=== PATIENT | female | born 1950 | race Caucasian/White ===

== ENCOUNTER 2024-02-19 12:10 | Inpatient (IN) | payer MEDICARE, SELFPAY ==
[2024-02-19] VITALS (26 sets, daily range): BP systolic 87–110; BP diastolic 52–72; PULSE 63–88; RESP 12–20; TEMP 36.2–36.8; O2SAT 97–100; BMI 20.9
--- NOTE | ~2024-02-19 | XR_ITS ---
EXAMINATION: XR abdomen/kub 1V DATE: 02/22/2024 14:58 INDICATION: Constipation. TECHNIQUE: A supine view of the abdomen on 2 radiographs was obtained. COMPARISON: CT abdomen and pelvis 02/19/2024 FINDINGS: Stool distends the rectosigmoid. The small bowel is normal in caliber. There are changes of heart valve replacements. There is a closure device at the left atrial appendage. Median sternotomy wires are noted. There are pacer wires in right atrium and right ventricle. Tubal ligation clips are noted. IMPRESSION: 1. Stool distends the rectosigmoid. Reviewed, dictated and finalized at location A. DRY BAG PUNCH OPERATOR
--- NOTE | ~2024-02-19 | CT_ITS ---
EXAMINATION: CT brain wo con DATE: 02/19/2024 16:31 INDICATION: AMS . TECHNIQUE: Computed tomography (CT) of the head was performed without intravenous contrast. The mA wa s adjusted according to patient size. Iterative reconstruction technique was employed. The dose-lengt h product was 605.33 mGy-cm. COMPARISON: None. FINDINGS: No acute intracranial hemorrhage or extra-axial fluid collection. No hydrocephalus, mass, or herniation. No acute ischemic infarct. Unremarkable dural venous sinus attenuation. No acute osseous abnormality. The aerated spaces are clear. Mild atrophy and moderate chronic white matter change. Atherosclerotic intracranial calcifications. IMPRESSION: No acute intracranial process. Reviewed, dictated and finalized at location K. LOCK SLEEVE SETTER
--- NOTE | ~2024-02-19 | US_ITS ---
EXAMINATION: US abdomen complete DATE: 02/24/2024 10:04 INDICATION: Pancytopenia. TECHNIQUE: Multiple grayscale and Doppler ultrasound images of the abdomen were obtained. COMPARISON: CT abdomen and pelvis 02/19/2024 FINDINGS: The visualized portions of the head and body of the pancreas are normal. Abdominal aorta is normal in caliber. The inferior vena cava is normal. There is a small right pleural effusion. The li abdirizak is normal without focal lesion. There is normal flow in main portal vein. The gallbladder is dist ended. Gallbladder wall thickening is noted. No visible gallstones. The common duct is normal and katharina sures 6 mm. The kidneys are normal in size. There is cortical thinning of the kidneys. The spleen is normal in size. IMPRESSION: 1. Gallbladder distention and wall thickening, which may be secondary to fasting and interstitial agustin ma. If there is clinical concern for acute cholecystitis, consider hepatobiliary scintigraphy. 2. Small right pleural effusion. Reviewed, dictated and finalized at location A. CREW MEMBER IMPRESSION: 1. Gallbladder distention and wall thickening, which may be secondary to fastin g and interstitial edema. If there is clinical concern for acute cholecystitis, consider hepatobiliary scintigraphy. 2. Small right pleural effusion.
--- NOTE | ~2024-02-19 | CT_ITS ---
EXAMINATION: CTA abdomen pelvis DATE: 02/19/2024 16:42 INDICATION: GI bleed, abd pain TECHNIQUE: Computed tomography angiography of the abdomen and pelvis was performed with 100 mL Omnipa que-350 intravenous contrast in the arterial phase. Automated exposure control and iterative reconstr uction technique were employed. The dose-length product was 439.51 mGy-cm. COMPARISON: X-ray chest, same date. FINDINGS: Lower thorax: Pacemaker leads. Cardiac valve replacements. Cardiomegaly. Liver: Normal. Biliary/Gallbladder: Gallbladder is normal. No bile duct dilation. Pancreas: No mass or duct dilation. Spleen: Normal. Adrenals:No mass. Kidneys: No suspicious mass, obstructing stone, or hydronephrosis. Bilateral renal atrophy. GI tract: The rectum is markedly dilated to 10.7 cm with surrounding wall thickening and inflammatory change. Marked soft tissue thickening of the distal rectum. Normal appendix. Diverticulosis without diverticulitis. Mesentery/Peritoneum: No ascites, mass, or free air. Retroperitoneum: No mass. Atherosclerotic abdominal aortic and/or arterial calcifications. No aneurys m or dissection. No branch vessel occlusion or severe stenosis. Left accessory renal artery. Pelvis: Normal urinary bladder. Normal uterus. Bilateral tubal ligation. Normal adnexa. Soft Tissues: Soft tissues and body wall unremarkable. Bones: No acute osseous finding. IMPRESSION: Severe fecal impaction with findings concerning for stercoral colitis. Possible rectal mass. No source for GI bleeding identified. Reviewed, dictated and finalized at location K. NT BABYSITTER
--- NOTE | ~2024-02-19 | XR_ITS ---
EXAMINATION: XR chest 1V portable Exam Date/Time: 02/19/2024 15:30 SOFTWARE TEAM LEADER HISTORY: dyspnea Comparison: None. RESULT: Lines, tubes, and devices: Left chest pacer with intact leads. Intact sternotomy wires. Atrial occlu maira device. Cardiac valve replacements. Lungs and pleura: Senescent changes, otherwise clear. Cardiomediastinal silhouette: Stable. Other: No acute osseous or upper abdominal finding. IMPRESSION: No acute cardiopulmonary process. Reviewed, dictated and finalized at location K. WARE TEAM LEADER
--- NOTE | 2024-02-19 15:12 | ECG_ITS ---
Test Date: 2024-02-19 15:48:06 Measurements Intervals [place] Rate: 78 P: 266 WA: 209 QRS: 1 QRSD: 186 T: 174 QT: 465 QTc: 531 Interpretive Statements ELECTRONIC ATRIAL PACEMAKER ELECTRONIC VENTRICULAR PACEMAKER ATYPICAL ECG Electronically Signed On 02-20-2024 08:55:26 BANK REPRESENTATIVE by Cliff Pereira M.D.
[2024-02-19] MEDS: SODIUM CHLORIDE 0.9% IV 1,000 ML 999 ML IV CONT ×2 (15:35→17:33)
--- NOTE | 2024-02-19 15:44 | ED_ITS ---
HPI - Nausea/Vomiting/Diarrhea General Chief complaint: Nausea/Vomiting/Diarrhea Stated complaint: diarrhea Time Seen by Provider: 02/19/24 14:58 History of Present Illness HPI Narrative: 73-year-old female with history of pacemaker placement, CABG, on chronic anticoagulation presents to the ED with son and [id number] at bedside for altered mental status and diarrhea for the past 5 days. Patient lives at home with son assist with history. States the patient has become increasingly more confused and has had bowel incontinence for the past few days. States she has had dark, tarry, sticky and malodorous stools which is abnormal. Last dose for Eliquis was this morning. She is also on iron supplement. She is reporting diffuse abdominal pain and generalized weakness. Family at bedside states the patient is having difficulty caring for herself due to her generalized weakness and has been lightheaded and unsteady on her feet. No falls. The patient denies headache, vision changes, focal numbness or weakness, chest pain, dysuria or hematuria. She is reporting some shortness of breath. No fevers. Last colonoscopy was in 2021 and showed diverticulosis and proctitis. Related Data Home Medications Medication Instructions Recorded Confirmed albuterol sulfate 90 mcg/actuation 1 - 2 puff inhalation Q6H PRN 02/19/24 02/19/24 aerosol inhaler sob/wheezing allopurinol 100 mg tablet 100 mg PO DAILY 02/19/24 02/19/24 apixaban 5 mg tablet (Eliquis) 5 mg PO BID 02/19/24 02/19/24 atorvastatin 20 mg tablet 20 mg PO QPM 02/19/24 02/19/24 cholecalciferol (vitamin D3) 1,250 1,250 mcg PO WEEKLY 02/19/24 02/19/24 mcg (50,000 unit) capsule ferrous sulfate 325 mg (65 mg 325 mg PO BID 02/19/24 02/19/24 iron) tablet fluticasone propionate 115 2 puff inhalation Q12H 02/19/24 02/19/24 mcg-salmeterol 21 mcg/actuation HFA inhaler metoprolol succinate 25 mg 12.5 mg PO DAILY 02/19/24 02/19/24 tablet,extended release 24 hr mirtazapine 30 mg tablet 30 mg PO QPM 02/19/24 02/19/24 omeprazole 20 mg capsule,delayed 20 mg PO DAILY 02/19/24 02/19/24 release Allergies Allergy/AdvReac Type Severity Reaction Status Date / Time No Known Allergies Allergy Verified 02/19/24 12:11 Review of Systems Review of Systems: All systems reviewed & are unremarkable except as noted in HPI and below [facility] Family History Family History (Updated 02/19/24 @ 20:43 by Aimee Dominguez RN) Other Acute myocardial infarction Social History Social History Smoking status: Former smoker Substance use type: does not use Do You Feel Safe in your Home?: Yes Lack of Transportation: No Lack of Food: Never True Current Housing: I Have Housing Concerned About Future Housing: No Difficulty Paying Gas/Electric Bills: No Difficulty Paying for Meds: No Currently Unemployed: No Education: High School Diploma/GED Difficulty w/ Childcare or Family Care: No Spiritual care concerns: No Exam Narrative: GENERAL: Ill appearing, NAD HEAD: Normocephalic, atraumatic. EYES: PERRLA and EOMI. ENT: Nares clear, no rhinorrhea or epistaxis. Mucous membranes moist. NECK: Supple. CHEST: Clear to auscultation. No respiratory distress. HEART: Regular rate and rhythm. No murmur heard. Normal peripheral pulses. ABDOMEN: normoactive bowel sounds. Diffuse abdominal tenderness with no rebound, guarding or rigidity. Rectal exam chaperoned by Roseanna Salmon: melena surrounding the rectum with external hemorrhoids. Hemoccult positive. No gross hematochezia EXTREMITIES: Normal range of motion. No edema. SKIN: Warm, dry, no rash. NEURO: No focal deficits. Alert and oriented x1. Moving all extremities sp ontaneously Course Vital Signs Vital signs: Vital Signs Temperature 97.2 F L 02/19/24 12:32 Pulse Rate 69 02/19/24 12:32 Respiratory Rate 18 02/19/24 12:32 Blood Pressure 97/55 L 02/19/24 12:32 Pulse Oximetry 100 02/19/24 12:32 Temperature 97.8 F 02/19/24 22:42 Pulse Rate 80 02/20/24 00:00 Respiratory Rate 20 02/19/24 22:42 Blood Pressure 104/54 L 02/19/24 22:42 Pulse Oximetry 99 02/19/24 22:42 Oxygen Delivery Room Air 02/19/24 22:18 MDM - Nausea/Vomiting/Diarrhea MDM Narrative Medical decision making narrative: 73-year-old female presents to the emergency department for altered mental status, generalized weakness and melena for 5 days. She is chronically anticoagulated with Eliquis. Triage vitals reveal hypotension of 97/55 which has since improved upon my evaluation. She is resting comfortably in exam bed. Exam is significant for gross melena vs dark stools from iron supplement. CBC shows no leukocytosis. Hemoglobin is 11.1, no prior for comparison. Chemistries reveal an elevated BUN of 15 creatinine 1.5. UA with trace ketones, no UTI. CK Mag are normal. Lactic normal at 1.2. TSH within normal limits. CT brain shows no acute intracranial findings. Chest x-ray shows no acute cardiopulmonary findings. EKG shows electronic atrial pacemaker and electronic ventricular pacemaker, rate of 70 ppm. Troponin is undetectable. CT abdomen pelvis shows severe fecal impaction with findings concerning for stercoral colitis and possible rectal mass. There is no source for GI bleeding identified. Patient and family at bedside updated on workup. She has received 2 L of fluids and IV Protonix. Given soft blood pressures and persistent passing of melena, she was transfused with a unit of blood. MAP remains >65. Attempted fecal disimpaction without much success. Patient was given a soapsuds enema with passage of diarrhea. I discussed the case with GI physician, Dr. Lipscomb, who advises to initiate Rocephin and Flagyl to cover for colitis, serial H&H, hold Eliquis, initiate clear liquid diet until NPO at midnight, and start a bowel regimen with MiraLax. Advises Protonix 40 mg q.12 b.i.d. intravenously. Agrees to consult on admission. Discussed with the hospitalist, Dr. Menchaca, who agrees to admission on med/tele. Lab Data 02/19/24 22:20 02/19/24 15:46 Labs: Lab Results 02/19/24 02/19/24 02/19/24 Range/Units 15:45 15:46 16:45 WBC 4.6 (4.5-10.0) K/mm3 RBC 3.46 L (4.2-5.4) M/mm3 Hgb 11.1 L (12.0-15.0) g/dL Hct 33.8 L (37.0-47.0) % MCV 97.7 (80-100) fl MCH 32.1 (26-34) pg MCHC 32.8 (32-36) g/dl RDW 17.2 H (11.5-14.5) % Plt Count 153 (150-375) k/mm3 MPV 12.2 H (7.4-10.4) fl Immature Gran % (Auto) 0.7 H (0-0.5) % Neut % (Auto) 68.9 (45.5-73.1) % Lymph % (Auto) 23.1 (18.3-44.2) % [place] % (Auto) 5.5 (2.6-8.5) % Eos % (Auto) 0.9 (0-4.4) % Baso % (Auto) 0.9 (0.2-1.2) % Lymph # (Auto) 1.05 (0.9-3.2) K/mm3 [place] # (Auto) 0.3 (0.1-0.6) K/mm3 Eos # (Auto) 0.0 (0-0.3) K/mm3 Baso # (Auto) 0.0 (0.0-0.1) K/mm3 Abs Immat Gran (auto) 0.03 (0.00-0.031) K/mm3 Absolute Neuts (auto) 3.1 (1.3-6.7) K/mm3 Absolute Nucleated RBC 0.000 (0.0-0.012) K/mm3 Nucleated RBC % 0.0 (0.0-0.2) % PT 24.2 H (11.1-14.7) Seconds INR 2.1 APTT 38.1 H (22.3-36.8) Seconds Sodium 139 (137-145) mmol/L Potassium 4.3 (3.4-5.0) mmol/L Chloride 108 H (98-107) mmol/L Carbon Dioxide 21 L (22-30) mmol/L Anion Gap 10 (4-12) mmol/L BUN 50 H (7-17) mg/dL Creatinine 1.50 H (0.7-1.0) mg/dL Estim Creat Clear Calc 26 ml/min Estimated GFR 34 L (59 - ) Glucose 84 (65-110) mg/dL Lactic Acid 1.2 (0.7-2.0) mmol/L Calcium 9.3 (8.4-10.2) mg/dL Magnesium 2.2 (1.6-2.3) mg/dL Total Bilirubin 0.9 (0.2-1.3) mg/dL AST 24 (14-36) U/L ALT 10 (6-35) U/L Alkaline Phosphatase 82 (38-126) U/L Total Creatine Kinase 104 (30-135) U/L Troponin I < 0.012 (0.000-0.034) ng/mL NT-Pro-B Natriuret Pep 1560 H (19.9-100) pg/mL Total Protein 7.0 (6.3-8.2) g/dL Albumin 4.2 (3.5-5.1) g/dL Lipase 19 L (23-300) U/L TSH 4.380 (0.465-4.680) uIU/mL Urine Color (Yellow) Urine Appearance (Clear) Urine pH (5.0-9.0) Ur Specific Jerem[place] (1.001-1.035) Urine Protein (Negative) mg/dL Urine Glucose (UA) (Negative) mg/dL Urine Ketones (Negative) mg/dL Ur Blood (Man) (Negative) Urine Nitrate (Negative) Urine Bilirubin (Negative) Urine Urobilinogen (<2.0) mg/dL Leukocyte Esterase Rfl (Negative) MAHESH/UL Blood Type O Positive Antibody Screen Negative Crossmatch See Detail 02/19/24 Range/Units 17:26 WBC (4.5-10.0) K/mm3 RBC (4.2-5.4) M/mm3 Hgb (12.0-15.0) g/dL Hct (37.0-47.0) % MCV (80-100) fl MCH (26-34) pg MCHC (32-36) g/dl RDW (11.5-14.5) % Plt Count (150-375) k/mm3 MPV (7.4-10.4) fl Immature Gran % (Auto) (0-0.5) % Neut % (Auto) (45.5-73.1) % Lymph % (Auto) (18.3-44.2) % [place] % (Auto) (2.6-8.5) % Eos % (Auto) (0-4.4) % Baso % (Auto) (0.2-1.2) % Lymph # (Auto) (0.9-3.2) K/mm3 [place] # (Auto) (0.1-0.6) K/mm3 Eos # (Auto) (0-0.3) K/mm3 Baso # (Auto) (0.0-0.1) K/mm3 Abs Immat Gran (auto) (0.00-0.031) K/mm3 Absolute Neuts (auto) (1.3-6.7) K/mm3 Absolute Nucleated RBC (0.0-0.012) K/mm3 Nucleated RBC % (0.0-0.2) % PT (11.1-14.7) Seconds INR APTT (22.3-36.8) Seconds Sodium (137-145) mmol/L Potassium (3.4-5.0) mmol/L Chloride (98-107) mmol/L Carbon Dioxide (22-30) mmol/L Anion Gap (4-12) mmol/L BUN (7-17) mg/dL Creatinine (0.7-1.0) mg/dL Estim Creat Clear Calc ml/min Estimated GFR (59 - ) Glucose (65-110) mg/dL Lactic Acid (0.7-2.0) mmol/L Calcium (8.4-10.2) mg/dL Magnesium (1.6-2.3) mg/dL Total Bilirubin (0.2-1.3) mg/dL AST (14-36) U/L ALT (6-35) U/L Alkaline Phosphatase (38-126) U/L Total Creatine Kinase (30-135) U/L Troponin I (0.000-0.034) ng/mL NT-Pro-B Natriuret Pep (19.9-100) pg/mL Total Protein (6.3-8.2) g/dL Albumin (3.5-5.1) g/dL Lipase (23-300) U/L TSH (0.465-4.680) uIU/mL Urine Color Yellow (Yellow) Urine Appearance Clear (Clear) Urine pH 5.0 (5.0-9.0) Ur Specific [place] 1.037 H (1.001-1.035) Urine Protein Negative (Negative) mg/dL Urine Glucose (UA) Negative (Negative) mg/dL Urine Ketones Trace H (Negative) mg/dL Ur Blood (Man) Negative (Negative) Urine Nitrate Negative (Negative) Urine Bilirubin Negative (Negative) Urine Urobilinogen 1.0 (<2.0) mg/dL Leukocyte Esterase Rfl Negative (Negative) MAHESH/UL Blood Type Antibody Screen Crossmatch Discharge Plan Discharge Clinical Impression: Melena, Fecal impaction, Rectal mass, Anemia, normocytic normochromic Patient Disposition: Still a Patient Condition: Stable
[2024-02-19 15:55] LABS: Basophils Percent Auto 0.9 % (0.2-1.2); Eosinophils Percent Auto 0.9 % (0-4.4); Hematocrit 33.8 % (37.0-47.0); Hemoglobin 11.1 g/dL (12.0-15.0); Immature Granulocyte Absolute 0.03 K/mm3 (0.00-0.031); Immature Granulocyte Percent A 0.7 % (0-0.5); Lymphocytes Absolute Auto 1.05 K/mm3 (0.9-3.2); Lymphocytes Percent Auto 23.1 % (18.3-44.2); Mean Corpuscular HGB Conc 32.8 g/dl (32-36); Mean Corpuscular Hemoglobin 32.1 pg (26-34); Mean Corpuscular Volume 97.7 fl (80-100); Mean Platelet Volume 12.2 fl (7.4-10.4); Monocytes Absolute Auto 0.3 K/mm3 (0.1-0.6); Monocytes Percent Auto 5.5 % (2.6-8.5); Neutrophils Absolute Auto 3.1 K/mm3 (1.3-6.7); Neutrophils Percent Auto 68.9 % (45.5-73.1); Platelet Count Result 153 k/mm3 (150-375); Red Blood Count 3.46 M/mm3 (4.2-5.4); Red Cell Distribution Width 17.2 % (11.5-14.5); White Blood Count 4.6 K/mm3 (4.5-10.0)
[2024-02-19 16:06] LABS: Alanine Aminotransferase 10 U/L (6-35); Albumin Level 4.2 g/dL (3.5-5.1); Alkaline Phosphatase 82 U/L (38-126); Anion Gap 10 mmol/L (4-12); Aspartate Amino Transferase 24 U/L (14-36); Bilirubin,Total 0.9 mg/dL (0.2-1.3); Blood Urea Nitrogen 50 mg/dL (7-17); Calcium 9.3 mg/dL (8.4-10.2); Carbon Dioxide 21 mmol/L (22-30); Chloride 108 mmol/L (98-107); Creatine Kinase 104 U/L (30-135); Estimated CRCL calculation 26 ml/min; Estimated Glomerular Filt Rate 34; Glucose 84 mg/dL (65-110); INR 2.1; Lipase 19 U/L (23-300); Magnesium 2.2 mg/dL (1.6-2.3); Potassium 4.3 mmol/L (3.4-5.0); Prothrombin Time 24.2 Seconds (11.1-14.7); Sodium 139 mmol/L (137-145)
[2024-02-19 16:07] LABS: Partial Thromboplastin Time 38.1 Seconds (22.3-36.8)
[2024-02-19 16:18] LABS: Troponin I < 0.012 ng/mL (0.000-0.034)
[2024-02-19 17:00] LABS: Lactic Acid Reflex 1.2 mmol/L (0.7-2.0)
[2024-02-19] MEDS: PANTOPRAZOLE SODIUM IV 40 MG VIAL IV PUSH ×2 (17:34→21:52)
[2024-02-19 17:47] LABS: Add Urine Microscopic? NO; Appearance Urine Clear (Clear); Bilirubin Urine Negative (Negative); Blood Urine Negative (Negative); Color Urine Yellow (Yellow); Glucose Urine UA Negative (Negative); Ketones Urine Trace mg/dL (Negative); Leukocyte Esterase Ur Negative LEU/UL (Negative); Nitrate Urine Negative (Negative); Protein Urine Negative (Negative); Specific Grav Ur 1.037 (1.001-1.035)
[2024-02-19] MEDS: TUBING, BLOOD PLUM PUMP TUBING 1 EACH XX (19:32)
[2024-02-19] MEDS: SODIUM CHLORIDE 0.9% IV 250 ML 30 ML IV CONT (19:32)
[2024-02-19 20:33] LABS: NT Pro B Type Natriuretic Pept 1560 pg/mL (19.9-100)
--- NOTE | 2024-02-19 20:59 | PC.NURSE ---
Patient denies history significant heart history as pertains to hypertension and high cholesterol; external medication list reviewed with patient and family, patient denies needing amiodarone and states I have had heart surgery, why would I need to take medicine for that ; Patient family provided a medication list via telephone and stated that they will follow up with patient's provider to confirm dosage of amiodarone and spironolactone, if needed. Admission report provided to Dr. Cevallos and FRITZ Diaz.
--- NOTE | 2024-02-19 21:15 | PM.IMHP ---
H&P: HPI History of Present Illness Date/Time: 02/19/24 21:15 Chief Complaint: 1. Melena 2. Abdominal pain 3. Weight loss Narrative: Magy Heredia is a 73F with a mHx significant for CAD s/p CABG, A-fib s/p PPM, Mitral valve repair, chronic anticoagulation, She was brought in by her daughter in-law after experiencing multiple episodes of dark loose stools; worse with meals and drinks; associated with lower abdominal pains, fatigue, anorexia, unstable gait and weight loss over prior months. She denies chest pain, fevers, rigors, dizziness or LOC. Though she smoked many years prior, she does not currently; denies alcohol or recreational/illicit drug use. Work-up findings: WBC 4.4 Hb 11 PLT 153 Na 139 K 4.3 Cl 108 HCO3 21 CTAP: Severe fecal impaction with findings concerning for stercoral colitis. Possible rectal mass. No source for GI bleeding identified. CT Head: Unremarkable CXR: Unremarkable UA: Unremarkable BNP: 1560 She will be admitted, evaluated for melena and anemia, constipation with stool impaction and a probable rectal mass Review of Systems Constitutional: Constitutional: Denies body ache(s), Denies difficulty sleeping and Reports fatigue Eyes: Eyes: Denies blurry vision ENT: Reports Normal hearing present, Denies dysphagia, Denies epistaxis, Denies nasal congestion and Denies nasal discharge Cardiovascular: Cardiovascular: Denies pedal edema, Denies lightheadedness and Denies palpitations Respiratory: Respiratory: Denies cough, Denies hemoptysis, Denies dyspnea and Denies dyspnea on exertion Gastrointestinal: Gastrointestinal: Reports abdominal pain, Reports melena, Denies hematochezia, Reports diarrhea, Denies nausea and Denies vomiting Genitourinary: Genitourinary: Denies nocturia, Denies menorrhagia, Denies dysuria, Denies urinary incontinence, Denies urinary hesitancy, Denies urinary urgency and Denies vaginal discharge Musculoskeletal: Musculoskeletal: Denies arthralgias, Denies joint swelling, Denies neck pain and Denies stiffness Integumentary/Breasts: Skin/Breast: Denies dry skin and Denies erythema Neurologic: Denies Abnormal speech present, Reports abnormal gait, Denies vertigo and Denies headache(s) Psychiatric: Psychiatric: Denies anxiety, Denies behavioral changes and Denies confusion [facility] Family History Family History (Updated 02/19/24 @ 20:43 by Aimee Dominguez RN) Other Acute myocardial infarction Social History Social History Smoking status: Former smoker Substance use type: does not use Do You Feel Safe in your Home?: Yes Lack of Transportation: No Lack of Food: Never True Current Housing: I Have Housing Concerned About Future Housing: No Difficulty Paying Gas/Electric Bills: No Difficulty Paying for Meds: No Currently Unemployed: No Education: High School Diploma/GED Difficulty w/ Childcare or Family Care: No Spiritual care concerns: No Meds Home Medications and Allergies Home Medications Medication Instructions Recorded Confirmed Type albuterol sulfate 90 mcg/actuation 1 - 2 puff inhalation Q6H PRN 02/19/24 02/19/24 History aerosol inhaler sob/wheezing allopurinol 100 mg tablet 100 mg PO DAILY 02/19/24 02/19/24 History apixaban 5 mg tablet (Eliquis) 5 mg PO BID 02/19/24 02/19/24 History atorvastatin 20 mg tablet 20 mg PO QPM 02/19/24 02/19/24 History cholecalciferol (vitamin D3) 1,250 1,250 mcg PO WEEKLY 02/19/24 02/19/24 History mcg (50,000 unit) capsule ferrous sulfate 325 mg (65 mg 325 mg PO BID 02/19/24 02/19/24 History iron) tablet fluticasone propionate 115 2 puff inhalation Q12H 02/19/24 02/19/24 History mcg-salmeterol 21 mcg/actuation HFA inhaler metoprolol succinate 25 mg 12.5 mg PO DAILY 02/19/24 02/19/24 History tablet,extended release 24 hr mirtazapine 30 mg tablet 30 mg PO QPM 02/19/24 02/19/24 History omeprazole 20 mg capsule,delayed 20 mg PO DAILY 02/19/24 02/19/24 History release Allergies Allergy/AdvReac Type Severity Reaction Status Date / Time No Known Allergies Allergy Verified 02/19/24 12:11 Vital Signs Vital Signs - 24 hr 02/19/24 12:32 02/19/24 14:53 02/19/24 16:23 Temperature 97.2 F L Pulse Rate 69 64 63 Respiratory Rate 18 18 18 Blood Pressure 97/55 L 106/72 102/65 Pulse Oximetry 100 97 97 02/19/24 16:51 02/19/24 17:01 02/19/24 17:31 Temperature Pulse Rate 79 81 80 Respiratory Rate 13 12 19 Blood Pressure 93/58 L 97/52 L 93/56 L Pulse Oximetry 100 100 100 02/19/24 18:50 02/19/24 18:55 02/19/24 18:57 Temperature 97.9 F Pulse Rate 85 78 70 Respiratory Rate 12 13 12 Blood Pressure 110/68 88/64 L 87/59 L Pulse Oximetry 100 98 99 02/19/24 19:04 02/19/24 19:10 02/19/24 19:35 Temperature 98.0 F 97.6 F Pulse Rate 78 77 81 Respiratory Rate 13 12 13 Blood Pressure 100/58 L 99/66 L 91/60 L Pulse Oximetry 100 100 100 02/19/24 19:56 02/19/24 20:10 02/19/24 20:46 Temperature 98.0 F Pulse Rate 79 85 73 Respiratory Rate 12 16 13 Blood Pressure 94/66 L 92/68 L 96/62 L Pulse Oximetry 98 100 98 02/19/24 20:01 02/19/24 20:05 02/19/24 20:11 Temperature Pulse Rate 80 87 80 Respiratory Rate 12 19 17 Blood Pressure 92/68 L 94/68 L 92/68 L Pulse Oximetry 97 98 98 02/19/24 20:16 02/19/24 20:21 02/19/24 20:26 Temperature Pulse Rate 79 86 85 Respiratory Rate 19 13 19 Blood Pressure 98/61 L 99/59 L 91/63 L Pulse Oximetry 97 98 98 02/19/24 20:31 02/19/24 20:40 02/19/24 21:06 Temperature 98.2 F Pulse Rate 86 88 81 Respiratory Rate 12 15 14 Blood Pressure 95/60 L 94/67 L 95/63 L Pulse Oximetry 100 99 98 Exam Const: General: comfortable; No no acute distress, in distress or uncomfortable HENMT: Mouth: No moist mucous membranes, Yes dry mucous membranes and No Abnormal oral and palatal mucosa present Eyes: Sclera: abnormal sclerae Pupils: Equal, round and reactive pupils present EOM: EOMs intact bilaterally Neck: Neck: supple Thyroid: thyroid normal Lymphatic: lymphadenopathy not noted Resp: Auscultation: clear to auscultation bilaterally, no crackles, no rales, no rhonchi and no wheezes Cardio: Rate: regular rate Rhythm: regular rhythm GI: Inspection: non-distended GI Palp: Yes Soft to palpation, Yes Tenderness to palpation present (GI) and Yes Guarding due to palpation present (GI) Auscultation: normal bowel sounds Skin: General skin exam: normal color Lesions: no lesions noted Rashes: no rashes noted Neuro: Motor exam (neuro): 5/5 motor strength present throughout, Normal motor muscle tone present throughout and strength normal Sensory Exam: normal sensation Psych: Mental Status: mental status grossly normal H&P: Results Labs Labs: Short CBC 02/19/24 Range/Units 15:46 WBC 4.6 (4.5-10.0) K/mm3 Hgb 11.1 L (12.0-15.0) g/dL Hct 33.8 L (37.0-47.0) % Plt Count 153 (150-375) k/mm3 BMP 02/19/24 15:46 Sodium 139 Potassium 4.3 Chloride 108 H Carbon Dioxide 21 L BUN 50 H Creatinine 1.50 H Glucose 84 Calcium 9.3 Cardiac Enzymes 02/19/24 Range/Units 15:46 Total Creatine Kinase 104 (30-135) U/L Troponin I < 0.012 (0.000-0.034) ng/mL Liver Function 02/19/24 Range/Units 15:46 Total Bilirubin 0.9 (0.2-1.3) mg/dL AST 24 (14-36) U/L ALT 10 (6-35) U/L Alkaline Phosphatase 82 (38-126) U/L Albumin 4.2 (3.5-5.1) g/dL Urine 02/19/24 Range/Units 17:26 Urine Color Yellow (Yellow) Urine Appearance Clear (Clear) Urine pH 5.0 (5.0-9.0) Ur Specific [place] 1.037 H (1.001-1.035) Urine Protein Negative (Negative) mg/dL Urine Glucose (UA) Negative (Negative) mg/dL ECG Attestation: I personally reviewed and interpreted this ECG as follows: (Atrial paced, VS rhythm; no evidence of ischemia. Rate 78; qTC 531) ECG completion date: 02/19/24 Assessment and Plan Assessment and plan (1) Melena: Code(s): K92.1 - Melena Status: Acute Assessment and Plan: Acute, Severe Dark stools maybe 2/2 iron supplements, UGIB while on Eliquis Rx: Monitor Hb with goal >7; NPO @ midnight; GI consult. will benefit from U+L endoscopies (2) Rectal mass: Code(s): K62.89 - Other specified diseases of anus and rectum Status: Acute Assessment and Plan: Acute, Moderate May be neoplastic process Rx: Colonoscopy with biopsy (3) Anemia, normocytic normochromic: Code(s): D64.9 - Anemia, unspecified Status: Acute Assessment and Plan: Acute, Moderate. Rx: Goal Hb >7; PPI; GI cnsulted Plan Acute and Principal conditions 1. Melena. Maybe 2/2 iron supplements vs UGIB 2. NAGMA. likely 2/2 diarrhea 3. Probable rectal mass. 4. Weight loss. unintentional 5. Acute renal insufficiency 6. Fecal impaction with constipated stools 7. Probable stercoral colitis. a. PPI, Hb monitoring; NPO @ midnight b. Hold AC till cleared by GI c. GI consulted; will benefit from U+L endoscopies d. Monitor renal function e. Metronidazole; Ceftriaxone Chronic and stable conditions 1. Chronic anticoagulant use 2. Hx of A-fib, s/p PPM. unsure of Amiodarone 3. Mitral valve repair, Bovine. on Eliquis 4. Insomnia 5. GERD. on PPI 6. Dyslipidemia. on Statin 7. Recurrent depression with Anxiety. 8. Hx of CVA. Miscellaneous care. 1. VTE prophylaxis. SCDs; holding pharmacologic VTE prophylaxis 2. Nutrition. NPO @ midnight 3. Code status. Full Hospitalist MIPS Advance Care Plan I have confirmed that the patient's Advanced Care Plan is present, code status is documented, or surrogate decision maker is listed in patient medical record.: Yes Medication Reconciliation I have utilized all available resources to obtain, update and review the patients current medications (includes all prescriptions, OTC, herbals, cannabis, and nutritional supplements).: Yes The patient is not eligible for med reconciliation; the patient is in a emergent medical situation where delaying treatment would jeopardize the patients health.: Yes
--- NOTE | 2024-02-19 21:23 | ADMGEN ---
This patient, Magy Heredia, was admitted to Medical Room 341-01. Patient/family oriented to hospital policies and general routines including ID bracelet, bed and alarms, visiting hours, pain management, procedures, bathroom and other care routines, personal items, smoking policy, room service/diet, and visiting hours. Information on how to activate the Rapid Response Team has been discussed. Patient/Family are encouraged to report perceived risks to care and to ask questions if they do not understand what they are told or what they should do.
[2024-02-19] MEDS: SODIUM CHLORIDE 0.9% IV 1,000 ML 100 ML IV CONT (21:53)
[2024-02-19] MEDS: metroNIDAZOLE 500 MG/ISO 100ML 500 MG/100 ML BAG 100 MG IVPB (21:53)
[2024-02-19 22:27] LABS: Hematocrit 33.8 % (37.0-47.0)
[2024-02-20] VITALS (13 sets, daily range): BP systolic 93–140; BP diastolic 53–107; PULSE 70–93; RESP 18–20; TEMP 36.2–36.8; O2SAT 94–100; BMI 20.9
[2024-02-20] MEDS: metroNIDAZOLE 500 MG/ISO 100ML 500 MG/100 ML BAG 100 MG IVPB ×3 (05:51→21:23)
[2024-02-20 06:18] LABS: Basophils Percent Auto 0.6 % (0.2-1.2); Eosinophils Absolute Auto 0.1 K/mm3 (0-0.3); Eosinophils Percent Auto 2.6 % (0-4.4); Hematocrit 32.4 % (37.0-47.0); Hemoglobin 10.2 g/dL (12.0-15.0); Immature Granulocyte Absolute 0.02 K/mm3 (0.00-0.031); Immature Granulocyte Percent A 0.6 % (0-0.5); Immature Platelet Fraction Pct 6.4 % (0.9-11.2); Lymphocytes Percent Auto 23.1 % (18.3-44.2); Mean Corpuscular HGB Conc 31.5 g/dl (32-36); Mean Corpuscular Hemoglobin 30.9 pg (26-34); Mean Corpuscular Volume 98.2 fl (80-100); Mean Platelet Volume 12.5 fl (7.4-10.4); Monocytes Absolute Auto 0.2 K/mm3 (0.1-0.6); Monocytes Percent Auto 5.8 % (2.6-8.5); Neutrophils Absolute Auto 2.3 K/mm3 (1.3-6.7); Neutrophils Percent Auto 67.3 % (45.5-73.1); Platelet Count Result 88 k/mm3 (150-375); Red Cell Distribution Width 17.3 % (11.5-14.5); White Blood Count 3.5 K/mm3 (4.5-10.0)
[2024-02-20 06:32] LABS: Alanine Aminotransferase 8 U/L (6-35); Albumin Level 2.9 g/dL (3.5-5.1); Alkaline Phosphatase 65 U/L (38-126); Anion Gap 4 mmol/L (4-12); Aspartate Amino Transferase 22 U/L (14-36); Bilirubin,Total 0.8 mg/dL (0.2-1.3); Blood Urea Nitrogen 36 mg/dL (7-17); Calcium 8.1 mg/dL (8.4-10.2); Carbon Dioxide 20 mmol/L (22-30); Chloride 113 mmol/L (98-107); Estimated CRCL calculation 36 ml/min; Estimated Glomerular Filt Rate 49; Glucose 64 mg/dL (65-110); Potassium 4.1 mmol/L (3.4-5.0); Sodium 137 mmol/L (137-145)
[2024-02-20] MEDS: DEXTROSE 50% 25 GM/50 ML SYRINGE IV PUSH (06:45)
[2024-02-20 07:06] LABS: Glucose Point of Care 123 mg/dl (65-105)
[2024-02-20] MEDS: PANTOPRAZOLE SODIUM IV 40 MG VIAL IV PUSH (09:35)
--- NOTE | 2024-02-20 10:35 | P.PNIM_ITS ---
Progress Note: A&P Assessment and Plan (1) Melena: Code(s): K92.1 - Melena Status: Acute Assessment and Plan: * Reporting dark stools on Eliquis for AFib * Hemoglobin stable * Continue to trend * GI consulted and plans for colonoscopy and EGD tomorrow * Transfuse as needed for hemoglobin less than 7.0 (2) Rectal mass: Code(s): K62.89 - Other specified diseases of anus and rectum Status: Acute Assessment and Plan: * GI consulted and following * CT of abdomen and pelvis showing severe fecal impaction with findings concerning for sterile coral colitis, possible rectal mass. * Plan for EGD/colonoscopy tomorrow (3) Anemia, normocytic normochromic: Code(s): D64.9 - Anemia, unspecified Status: Acute Assessment and Plan: * GI consulted * Hgb 10.7 * Continue to trend * Transfuse for Hgb < 7.0 (4) Hyperlipidemia: Code(s): E78.5 - Hyperlipidemia, unspecified Status: Acute Assessment and Plan: * continue Atorvastatin (5) Stercoral colitis: Code(s): K52.89 - Other specified noninfective gastroenteritis and colitis Status: Acute Assessment and Plan: * Continue bowel prep for EGD/colonoscopy in the morning (6) Pancytopenia: Code(s): D61.818 - Other pancytopenia Status: Acute Assessment and Plan: * WBC 3.5, RBC 3.30, Plt 88 * continue to trend * likely secondary to stercoral colitis, rectal mass??? Time Spent With Patient Time with patient: Greater than 35 minutes Subjective Date/time seen: 02/20/24 10:35 Interval history: Interval history: This is a 73 year old female who presented to the hospital yesterday with melena stools, abdominal pain, fatigue, and weight loss. Work up in the hospital included a chest x-ray that was negative for any acute findings. Head CT was also negative for any acute findings. Abdomen/Pelvis CTA revealed severe fecal impaction with findings concerning for stercoral colitis, possible rectal mass. the rectum was noted to be dilated to 10.7cm with surrounding wall thickening and inflammatory changes. Initial Labs shown a normal WBC of 4.6, Hgb 11.1, INR 2.1, creatinine 1.50, eGFR 34, lactic acid normal at 1.2, proBNP 1560, negative troponin, Lipase low at 19, TSH normal at 4.380. UA was obtained and shown a urine specific gravity of 1.037, trace ketones, otherwise unremarkable. EKG showing atrial paced rhythm with a rate of 78, QTc 531. Patient was given IVF, Protonix, Rocephin, Flagyl, Miralax and Dulcolax while in the ER. GI was consulted. Subjective: Patient talking in circles requesting door to be opened, heat turned up, asking about the miralax. After answering her she repeated the same requests. Patient has history of CVA in the past. Unsure if this has something to do with her rambling speech. Tried to reach out to her daughter for a better history however the phone number in the EMR is not a working number. Labs and imaging reviewed. Review of Systems Review of Systems: All systems reviewed & are unremarkable except as noted in HPI and below Constitutional: Constitutional: Reports as per HPI and Reports no additional constitutional complaints Eyes: Eyes: Reports as per HPI and Reports no additional eye complaints ENT: Reports system reviewed and no additional complaints, except as documented and Reports as per HPI Cardiovascular: Cardiovascular: Reports as per HPI and Reports no additional cardiovascular complaints Respiratory: Respiratory: Reports as per HPI and Reports no additional respiratory complaints Gastrointestinal: Gastrointestinal: Reports as per HPI and Reports no additional gastrointestinal complaints Genitourinary: Genitourinary: Reports no additional female genitourinary complaints and Reports as per HPI Musculoskeletal: Musculoskeletal: Reports no additional musculoskeletal complaints and Reports as per HPI Integumentary/Breasts: Skin/Breast: Reports system reviewed and no additional complaints, except as docu and Reports as per HPI Neurologic: Reports system reviewed and no additional complaints, except as documented and Reports as per HPI Psychiatric: Psychiatric: Reports no additional psychiatric complaints and R eports as per HPI Exam Narrative: General: In no acute distress, well nourished Head: atraumatic, no encephalopathy Eyes:PERRLA, sclera clear ENT: moist mucous membranes, nasal passages clear Neck: supple, no JVD, no adenopathy, trachea midline Cardiac: Normal S1 and S2. No murmur, gallops or friction rubs, peripheral pulses intact. Respiratory: Lungs clear to auscultation, no adventitious lung sounds, currently on room air Gastrointestinal: soft, non-distended, non-tender, normoactive bowel sounds. : voiding without difficulty. Extremities: moves all extremities well, no edema Skin: clean, dry, intact. No wounds or lesions. Neuro: Alert , cranial nerves intact, no neuro deficits. Psych: Rambling speech, anxious Objective Data Vital Signs Vital Signs: Vital Signs - 24 hr 02/19/24 12:32 02/19/24 14:53 02/19/24 16:23 Temperature 97.2 F L Pulse Rate 69 64 63 Respiratory Rate 18 18 18 Blood Pressure 97/55 L 106/72 102/65 Pulse Oximetry 100 97 97 Oxygen Delivery Fraction of Inspired Oxygen 02/19/24 16:51 02/19/24 17:01 02/19/24 17:31 Temperature Pulse Rate 79 81 80 Respiratory Rate 13 12 19 Blood Pressure 93/58 L 97/52 L 93/56 L Pulse Oximetry 100 100 100 Oxygen Delivery Fraction of Inspired Oxygen 02/19/24 18:50 02/19/24 18:55 02/19/24 18:57 Temperature 97.9 F Pulse Rate 85 78 70 Respiratory Rate 12 13 12 Blood Pressure 110/68 88/64 L 87/59 L Pulse Oximetry 100 98 99 Oxygen Delivery Fraction of Inspired Oxygen 02/19/24 19:04 02/19/24 19:10 02/19/24 19:35 Temperature 98.0 F 97.6 F Pulse Rate 78 77 81 Respiratory Rate 13 12 13 Blood Pressure 100/58 L 99/66 L 91/60 L Pulse Oximetry 100 100 100 Oxygen Delivery Fraction of Inspired Oxygen 02/19/24 19:56 02/19/24 20:10 02/19/24 20:46 Temperature 98.0 F Pulse Rate 79 85 73 Respiratory Rate 12 16 13 Blood Pressure 94/66 L 92/68 L 96/62 L Pulse Oximetry 98 100 98 Oxygen Delivery Fraction of Inspired Oxygen 02/19/24 20:01 02/19/24 20:05 02/19/24 20:11 Temperature Pulse Rate 80 87 80 Respiratory Rate 12 19 17 Blood Pressure 92/68 L 94/68 L 92/68 L Pulse Oximetry 97 98 98 Oxygen Delivery Fraction of Inspired Oxygen 02/19/24 20:16 02/19/24 20:21 02/19/24 20:26 Temperature Pulse Rate 79 86 85 Respiratory Rate 19 13 19 Blood Pressure 98/61 L 99/59 L 91/63 L Pulse Oximetry 97 98 98 Oxygen Delivery Fraction of Inspired Oxygen 02/19/24 20:31 02/19/24 20:40 02/19/24 21:06 Temperature 98.2 F Pulse Rate 86 88 81 Respiratory Rate 12 15 14 Blood Pressure 95/60 L 94/67 L 95/63 L Pulse Oximetry 100 99 98 Oxygen Delivery Fraction of Inspired Oxygen 02/19/24 22:18 02/19/24 22:27 02/19/24 22:42 Temperature 97.8 F Pulse Rate 76 74 Respiratory Rate 20 Blood Pressure 104/54 L Pulse Oximetry 99 Oxygen Delivery Room Air Fraction of Inspired Oxygen 02/20/24 00:00 02/20/24 04:00 02/20/24 05:45 Temperature Pulse Rate 80 73 82 Respiratory Rate Blood Pressure 93/61 L Pulse Oximetry Oxygen Delivery Fraction of Inspired Oxygen 02/20/24 04:00 02/20/24 05:48 02/20/24 05:50 Temperature 98.3 F Pulse Rate 93 90 93 Respiratory Rate 18 Blood Pressure 93/61 L 93/62 L 140/107 H Pulse Oximetry 96 Oxygen Delivery Fraction of Inspired Oxygen 02/20/24 09:42 Temperature Pulse Rate Respiratory Rate Blood Pressure Pulse Oximetry 96 Oxygen Delivery Room Air Fraction of Inspired Oxygen 21 Intake/Output Intake/Output: Intake & Output 02/17/24 02/18/24 02/19/24 02/20/24 23:59 23:59 23:59 23:59 Intake Total 2560 100 Output Total 150 Balance 2410 100 Meds/Results Medications: Active Medications Generic Name Dose Route Start Last Admin Trade Name Freq PRN Reason Stop Dose Admin Acetaminophen 650 mg 02/19/24 21:10 Acetaminophen 325 Mg Tablet PO Q4H PRN Mild Pain (1-3) or Fever Dextrose 12.5 gm 02/20/24 06:39 02/20/24 06:45 Dextrose 50% 25 Gm/50 Ml Syringe IV PUSH 12.5 gm PRN PRN Administration Hypoglycemia Protocol Glucagon 1 mg 02/20/24 06:39 Glucagon For Inj 1 Mg Vial IM PRN PRN Hypoglycemia Protocol Glucose 15 gm 02/20/24 06:39 Glucose Oral Gel 15 Gm Of Glucse In 37.5 Gm Tube PO PRN PRN Hypoglycemia Protocol Ceftriaxone Sodium 1 gm in 50 mls @ 100 mls/hr 02/20/24 20:00 Rocephin 1 Gm/Ns 50 Ml IVPB Q24H DAIANA Metronidazole 500 mg in 100 mls @ 100 mls/hr 02/20/24 06:00 02/20/24 06:51 Flagyl 500 Mg/Iso Soln 100 Ml IVPB Infused Q8H DAIANA Infusion Sodium Chloride 1,000 mls @ 100 mls/hr 02/19/24 21:10 02/19/24 21:53 Normal Saline Iv IV CONT 100 mls/hr .Q10H DAIANA Administration Dextrose 1,000 mls @ 100 mls/hr 02/20/24 06:39 Dextrose 5% 1,000 Ml IVPB PRN PRN Hypoglycemia Protocol Pantoprazole Sodium 40 mg 02/19/24 21:15 02/20/24 09:35 Pantoprazole Sodium Iv 40 Mg Vial IV PUSH 40 mg Q12HR DAIANA Administration Polyethylene Glycol 17 gm 02/20/24 09:00 02/20/24 08:52 Polyethylene Glycol 3350 17 Gm Powd.Pack PO Not Given QAM [facility] Radiology Results: ITS Impressions Chest X-Ray 02/19/24 15:48 IMPRESSION: No acute cardiopulmonary process. Head CT 02/19/24 16:34 IMPRESSION: No acute intracranial process. Abdomen/Pelvis CTA 02/19/24 16:49 IMPRESSION: Severe fecal impaction with findings concerning for stercoral colitis. Possible rectal mass. No source for GI bleeding identified. Labs Labs: Laboratory Results - last 24 hr 02/19/24 02/19/24 02/19/24 15:45 15:46 16:45 WBC 4.6 RBC 3.46 L Hgb 11.1 L Hct 33.8 L MCV 97.7 MCH 32.1 MCHC 32.8 RDW 17.2 H Plt Count 153 MPV 12.2 H Immature Gran % (Auto) 0.7 H Neut % (Auto) 68.9 Lymph % (Auto) 23.1 [place] % (Auto) 5.5 Eos % (Auto) 0.9 Baso % (Auto) 0.9 Lymph # (Auto) 1.05 [place] # (Auto) 0.3 Eos # (Auto) 0.0 Baso # (Auto) 0.0 Abs Immat Gran (auto) 0.03 Absolute Neuts (auto) 3.1 Absolute Nucleated RBC 0.000 Nucleated RBC % 0.0 % Immature Plt Fraction PT 24.2 H INR 2.1 APTT 38.1 H Sodium 139 Potassium 4.3 Chloride 108 H Carbon Dioxide 21 L Anion Gap 10 BUN 50 H Creatinine 1.50 H Estim Creat Clear Calc 26 Estimated GFR 34 L Glucose 84 POC Capillary Glucose Lactic Acid 1.2 Calcium 9.3 Magnesium 2.2 Total Bilirubin 0.9 AST 24 ALT 10 Alkaline Phosphatase 82 Total Creatine Kinase 104 Troponin I < 0.012 NT-Pro-B Natriuret Pep 1560 H Total Protein 7.0 Albumin 4.2 Lipase 19 L TSH 4.380 Urine Color Urine Appearance Urine pH Ur Specific [place] Urine Protein Urine Glucose (UA) Urine Ketones Ur Blood (Man) Urine Nitrate Urine Bilirubin Urine Urobilinogen Leukocyte Esterase Rfl Blood Type O Positive Antibody Screen Negative Crossmatch See Detail 02/19/24 02/19/24 02/20/24 17:26 22:20 05:27 WBC 3.5 L RBC 3.30 L Hgb 11.0 L 10.2 L Hct 33.8 L 32.4 L MCV 98.2 MCH 30.9 MCHC 31.5 L RDW 17.3 H Plt Count 88 L MPV 12.5 H Immature Gran % (Auto) 0.6 H Neut % (Auto) 67.3 Lymph % (Auto) 23.1 [place] % (Auto) 5.8 Eos % (Auto) 2.6 Baso % (Auto) 0.6 Lymph # (Auto) 0.80 L [place] # (Auto) 0.2 Eos # (Auto) 0.1 Baso # (Auto) 0.0 Abs Immat Gran (auto) 0.02 Absolute Neuts (auto) 2.3 Absolute Nucleated RBC 0.000 Nucleated RBC % 0.0 % Immature Plt Fraction 6.4 PT INR APTT Sodium 137 Potassium 4.1 Chloride 113 H Carbon Dioxide 20 L Anion Gap 4 BUN 36 H D Creatinine 1.10 H Estim Creat Clear Calc 36 Estimated GFR 49 L Glucose 64 L POC Capillary Glucose Lactic Acid Calcium 8.1 L Magnesium Total Bilirubin 0.8 AST 22 ALT 8 Alkaline Phosphatase 65 Total Creatine Kinase Troponin I NT-Pro-B Natriuret Pep Total Protein 5.0 L Albumin 2.9 L Lipase TSH Urine Color Yellow Urine Appearance Clear Urine pH 5.0 Ur Specific [place] 1.037 H Urine Protein Negative Urine Glucose (UA) Negative Urine Ketones Trace H Ur Blood (Man) Negative Urine Nitrate Negative Urine Bilirubin Negative Urine Urobilinogen 1.0 Leukocyte Esterase Rfl Negative Blood Type Antibody Screen Crossmatch 02/20/24 07:01 WBC RBC Hgb Hct MCV MCH MCHC RDW Plt Count MPV Immature Gran % (Auto) Neut % (Auto) Lymph % (Auto) [place] % (Auto) Eos % (Auto) Baso % (Auto) Lymph # (Auto) [place] # (Auto) Eos # (Auto) Baso # (Auto) Abs Immat Gran (auto) Absolute Neuts (auto) Absolute Nucleated RBC Nucleated RBC % % Immature Plt Fraction PT INR APTT Sodium Potassium Chloride Carbon Dioxide Anion Gap BUN Creatinine Estim Creat Clear Calc Estimated GFR Glucose POC Capillary Glucose 123 H Lactic Acid Calcium Magnesium Total Bilirubin AST ALT Alkaline Phosphatase Total Creatine Kinase Troponin I NT-Pro-B Natriuret Pep Total Protein Albumin Lipase TSH Urine Color Urine Appearance Urine pH Ur Specific [place] Urine Protein Urine Glucose (UA) Urine Ketones Ur Blood (Man) Urine Nitrate Urine Bilirubin Urine Urobilinogen Leukocyte Esterase Rfl Blood Type Antibody Screen Crossmatch Quality VTE Prophylaxis VTE prophylaxis: mechanical ordered
--- NOTE | 2024-02-20 10:38 | WPDGICN ---
Assessment and Plan Assessment and plan (1) Melena: Code(s): K92.1 - Melena Status: Acute (2) Fecal impaction: Code(s): K56.41 - Fecal impaction Status: Acute (3) Rectal mass: Code(s): K62.89 - Other specified diseases of anus and rectum Status: Acute (4) Stercoral colitis: Code(s): K52.89 - Other specified noninfective gastroenteritis and colitis Status: Acute (5) Abnormal digestive system diagnostic imaging: Code(s): R93.3 - Abnormal findings on diagnostic imaging of other parts of digestive tract Status: Acute (6) Pancytopenia: Code(s): D61.818 - Other pancytopenia Status: Acute Plan 1. Melena/pancytopenia: No known EGD Hx. patient with an extensive cardiac history including coronary artery disease status post CABG, bovine mitral valve replacement, AFib, and recent CVA. Patient is on long-term anticoagulation with Eliquis. Per [id number] patient had her CVA approximately 1 month ago and has been experiencing confusion since then. Patient states she has been having black stools for 2 weeks, she is on oral iron but it does not sound like she was having dark stools while on iron. she denies any NSAID or aspirin use denies any reflux or regurgitation. She does admit to Early satiety and a little weight loss but this is on measured. Appetite has been ok. H&H has remained relatively stable since admission but patient received 1 unit of PRBCs prior to admission labs showing Hgb 11-->10.2, Hct 34-->32, MCV 89, platelets 88, INR 2.1. WBC's were normal on admission and today 3.5. Continue PPI care with NSAID's aspirin and anticoags plan for EGD tomorrow primary care team to continue monitoring H/H and transfuse as needed to keep Hgb > 7 2. Abnormal imaging digestive-possible rectal mass/constipation /diarrhea/ fecal impaction / fecal incontinence: Per patient family last colonoscopy performed sometime in [place] town and colonoscopy supposedly revealed diverticulosis and proctitis. Patient denies any constipation prior to admission but CT yesterday showed severe fecal impaction with findings concerning for stercoral colitis and possible rectal mass. Patient is having black liquid stools multiple times daily now with fecal incontinence. Denies bright red blood per rectal or rectal pain. DDX: Chronic versus acute bowel inflammation versus motility disorder versus pelvic floor dysfunction versus overflow diarrhea secondary to impaction vs obstructive Patient has had multiple dark liquid stools today and episodes of fecal incontinence patient may require a oil retention enema based on response to bowel prep Clear liquid diet start bowel prep today following colonoscopy, patient will need to start a bowel regimen to address constipation Care with narcotics Thank you very much for allowing me to share in the care of this very nice patient. This report may have been done utilizing a voice recognition system. Attempts have been made to correct errors. However, there may be uncorrected grammatical, spelling, and recognition errors present. GI Consult Note Consult date/time: 02/20/24 10:38 Reason for consult: GI bleed HPI: This is a 73-year-old female with history of coronary artery disease, AFib, CABG, mitral valve repair, recent CVA and chronic anticoagulation. She presented to the emergency room yesterday accompanied by family for altered mental status and diarrhea. GI has been consulted for GI bleed. Patient was accompanied by her [id number] Keiko throughout the entire visit who also help provide subjective information. Please note that the patient is a poor historian so obtaining subjective information was somewhat difficult. Per [id number] the patient had a CVA last month and since then has been dealing with some confusion. Patient complains of Early satiety and umbilical abdominal pain that she described as a dull ache that has been occurring for a few weeks. Patient was unable to provide any additional information about this abdominal pain. She states that she thinks she may have lost weight but this is un measured. Patient believes that she has been having dark colored stools and diarrhea for approximately 2 weeks. She is on oral iron but was not having black stools prior to 2 weeks ago. She denies any nausea, vomiting, bloating, odynophagia, dysphagia, reflux, regurgitation. patient denies any bright red blood per rectum but was unable to provide any further details regarding her bowel frequency in bowel habits prior to admission. Patient is on Eliquis daily. Family history unknown. ENDOSCOPY HISTORY: EGD: No known Hx of prior EGD COLONOSCOPY: Last colonoscopy in 2021 showed diverticulosis and proctitis performed either in [place] or [facility] LABS AND STOOL STUDIES: LABS 02/20/2024 showed sodium 137, potassium 4.1, BUN 36, creatinine 1.10, GFR 89. WBC is 3.5, HGB 10, HCT 32, MCV 98, platelets 88, INR 2.1. Total bilirubin 0.8, AST 22, ALT 8, alkaline phosphatase 65, albumin 2.9, lactic acid 1.2, calcium 8.1, and lipase 19 IMAGING: CTA abd/pelvis w/contrast 02/19/2024 FINDINGS: Lower thorax: Pacemaker leads. Cardiac valve replacements. Cardiomegaly. Liver: Normal. Biliary/Gallbladder: Gallbladder is normal. No bile duct dilation. Pancreas: No mass or duct dilation. Spleen: Normal. Adrenals:No mass. Kidneys: No suspicious mass, obstructing stone, or hydronephrosis. Bilateral renal atrophy. GI tract: The rectum is markedly dilated to 10.7 cm with surrounding wall thickening and inflammatory change. Marked soft tissue thickening of the distal rectum. Normal appendix. Diverticulosis without diverticulitis. Mesentery/Peritoneum: No ascites, mass, or free air. Retroperitoneum: No mass. Atherosclerotic abdominal aortic and/or arterial calcifications. No aneurysm or dissection. No branch vessel occlusion or severe stenosis. Left accessory renal artery. Pelvis: Normal urinary bladder. Normal uterus. Bilateral tubal ligation. Normal adnexa. Soft Tissues: Soft tissues and body wall unremarkable. Bones: No acute osseous finding. IMPRESSION: Severe fecal impaction with findings concerning for stercoral colitis. Possible rectal mass. No source for GI bleeding identified. Review of Systems Review of Systems: ROS unobtainable: Yes unobtainable due to mental status ( patient provided minimal subjective information) Constitutional: Constitutional: Reports as per HPI ENT: Reports as per HPI Cardiovascular: Cardiovascular: Reports as per HPI Respiratory: Respiratory: Denies cough and Denies dyspnea Gastrointestinal: Gastrointestinal: Reports as per HPI Musculoskeletal: Musculoskeletal: Reports as per HPI Integumentary/Breasts: Skin/Breast: Reports as per HPI Psychiatric: Psychiatric: Reports as per HPI Endocrine: Endocrine: Reports no additional endocrine complaints Hematologic/Lymphatic: Hematologic/Lymphatic: Reports no additional hematologic/lymphatic complaints [facility] Family History Family History (Updated 02/19/24 @ 20:43 by Aimee Dominguez RN) Other Acute myocardial infarction Social History Social History Smoking status: Former smoker Substance use type: does not use Do You Feel Safe in your Home?: Yes Lack of Transportation: No Lack of Food: Never True Current Housing: I Have Housing Concerned About Future Housing: No Difficulty Paying Gas/Electric Bills: No Difficulty Paying for Meds: No Currently Unemployed: No Education: High School Diploma/GED Difficulty w/ Childcare or Family Care: No Spiritual care concerns: No Meds Home Medications and Allergies Home Medications Medication Instructions Recorded Confirmed Type albuterol sulfate 90 mcg/actuation 1 - 2 puff inhalation Q6H PRN 02/19/24 02/19/24 History aerosol inhaler sob/wheezing allopurinol 100 mg tablet 100 mg PO DAILY 02/19/24 02/19/24 History apixaban 5 mg tablet (Eliquis) 5 mg PO BID 02/19/24 02/19/24 History atorvastatin 20 mg tablet 20 mg PO QPM 02/19/24 02/19/24 History cholecalciferol (vitamin D3) 1,250 1,250 mcg PO WEEKLY 02/19/24 02/19/24 History mcg (50,000 unit) capsule ferrous sulfate 325 mg (65 mg 325 mg PO BID 02/19/24 02/19/24 History iron) tablet fluticasone propionate 115 2 puff inhalation Q12H 02/19/24 02/19/24 History mcg-salmeterol 21 mcg/actuation HFA inhaler metoprolol succinate 25 mg 12.5 mg PO DAILY 02/19/24 02/19/24 History tablet,extended release 24 hr mirtazapine 30 mg tablet 30 mg PO QPM 02/19/24 02/19/24 History omeprazole 20 mg capsule,delayed 20 mg PO DAILY 02/19/24 02/19/24 History release Allergies Allergy/AdvReac Type Severity Reaction Status Date / Time No Known Allergies Allergy Verified 02/19/24 12:11 Vital Signs Vital Signs - 24 hr 02/19/24 12:32 02/19/24 14:53 02/19/24 16:23 Temperature 97.2 F L Pulse Rate 69 64 63 Respiratory Rate 18 18 18 Blood Pressure 97/55 L 106/72 102/65 Pulse Oximetry 100 97 97 Oxygen Delivery Fraction of Inspired Oxygen 02/19/24 16:51 02/19/24 17:01 02/19/24 17:31 Temperature Pulse Rate 79 81 80 Respiratory Rate 13 12 19 Blood Pressure 93/58 L 97/52 L 93/56 L Pulse Oximetry 100 100 100 Oxygen Delivery Fraction of Inspired Oxygen 02/19/24 18:50 02/19/24 18:55 02/19/24 18:57 Temperature 97.9 F Pulse Rate 85 78 70 Respiratory Rate 12 13 12 Blood Pressure 110/68 88/64 L 87/59 L Pulse Oximetry 100 98 99 Oxygen Delivery Fraction of Inspired Oxygen 02/19/24 19:04 02/19/24 19:10 02/19/24 19:35 Temperature 98.0 F 97.6 F Pulse Rate 78 77 81 Respiratory Rate 13 12 13 Blood Pressure 100/58 L 99/66 L 91/60 L Pulse Oximetry 100 100 100 Oxygen Delivery Fraction of Inspired Oxygen 02/19/24 19:56 02/19/24 20:10 02/19/24 20:46 Temperature 98.0 F Pulse Rate 79 85 73 Respiratory Rate 12 16 13 Blood Pressure 94/66 L 92/68 L 96/62 L Pulse Oximetry 98 100 98 Oxygen Delivery Fraction of Inspired Oxygen 02/19/24 20:01 02/19/24 20:05 02/19/24 20:11 Temperature Pulse Rate 80 87 80 Respiratory Rate 12 19 17 Blood Pressure 92/68 L 94/68 L 92/68 L Pulse Oximetry 97 98 98 Oxygen Delivery Fraction of Inspired Oxygen 02/19/24 20:16 02/19/24 20:21 02/19/24 20:26 Temperature Pulse Rate 79 86 85 Respiratory Rate 19 13 19 Blood Pressure 98/61 L 99/59 L 91/63 L Pulse Oximetry 97 98 98 Oxygen Delivery Fraction of Inspired Oxygen 02/19/24 20:31 02/19/24 20:40 02/19/24 21:06 Temperature 98.2 F Pulse Rate 86 88 81 Respiratory Rate 12 15 14 Blood Pressure 95/60 L 94/67 L 95/63 L Pulse Oximetry 100 99 98 Oxygen Delivery Fraction of Inspired Oxygen 02/19/24 22:18 02/19/24 22:27 02/19/24 22:42 Temperature 97.8 F Pulse Rate 76 74 Respiratory Rate 20 Blood Pressure 104/54 L Pulse Oximetry 99 Oxygen Delivery Room Air Fraction of Inspired Oxygen 02/20/24 00:00 02/20/24 04:00 02/20/24 05:45 Temperature Pulse Rate 80 73 82 Respiratory Rate Blood Pressure 93/61 L Pulse Oximetry Oxygen Delivery Fraction of Inspired Oxygen 02/20/24 04:00 02/20/24 05:48 02/20/24 05:50 Temperature 98.3 F Pulse Rate 93 90 93 Respiratory Rate 18 Blood Pressure 93/61 L 93/62 L 140/107 H Pulse Oximetry 96 Oxygen Delivery Fraction of Inspired Oxygen 02/20/24 09:42 Temperature Pulse Rate Respiratory Rate Blood Pressure Pulse Oximetry 96 Oxygen Delivery Room Air Fraction of Inspired Oxygen 21 Exam Const: General: cooperative, healthy appearing, comfortable and no acute distress Orientation/consciousness: oriented to person, oriented to place and oriented to time HENMT: Head: normal to inspection Mouth: Yes Normal oral and palatal mucosa present and Yes moist mucous membranes Eyes: General: appearance normal, both eyes and all related structures Conjunctivae: conjunctivae normal Sclera: sclerae normal Pupils: Equal, round and reactive pupils present Neck: Neck: normal visual inspection Chest: Chest palpation & inspection: normal inspection of the chest Resp: Effort & Inspection: normal respiratory effort and able to speak in complete sentences Auscultation: clear to auscultation bilaterally Cardio: Jugular venous distension: no JVD Rate: regular rate Rhythm: abnormal rhythm Heart sounds: S1 normal heart sound present and S2 normal heart sound present GI: Inspection: normal to inspection GI Palp: Yes Soft to palpation, No Firmness to palpation present (GI), Yes Tenderness to palpation present (GI), No Guarding due to palpation present (GI) and Yes No hepatosplenomegaly present Auscultation: normal bowel sounds Rectal Exam: deferred Skin: General skin exam: normal color and no rashes or lesions noted Other: bruising Neuro: General: oriented to person Cranial nerves: Yes Equal, round and reactive pupils present Speech: normal speech Gait exam (Neuro): Normal gait present Extrem: General: normal to inspection and no clubbing, cyanosis or edema Psych: Appearance: grossly normal and well kempt Mental Status: mental status grossly abnormal Affect: normal affect Other: Confusion Results Labs 02/20/24 05:27 02/20/24 05:27 Labs: Short CBC 02/19/24 02/19/24 02/20/24 Range/Units 15:46 22:20 05:27 WBC 4.6 3.5 L (4.5-10.0) K/mm3 Hgb 11.1 L 11.0 L 10.2 L (12.0-15.0) g/dL Hct 33.8 L 33.8 L 32.4 L (37.0-47.0) % Plt Count 153 88 L (150-375) k/mm3 BMP 02/19/24 02/20/24 15:46 05:27 Sodium 139 137 Potassium 4.3 4.1 Chloride 108 H 113 H Carbon Dioxide 21 L 20 L BUN 50 H 36 H D Creatinine 1.50 H 1.10 H Glucose 84 64 L Calcium 9.3 8.1 L Cardiac Enzymes 02/19/24 Range/Units 15:46 Total Creatine Kinase 104 (30-135) U/L Troponin I < 0.012 (0.000-0.034) ng/mL Liver Function 02/19/24 02/20/24 Range/Units 15:46 05:27 Total Bilirubin 0.9 0.8 (0.2-1.3) mg/dL AST 24 22 (14-36) U/L ALT 10 8 (6-35) U/L Alkaline Phosphatase 82 65 (38-126) U/L Albumin 4.2 2.9 L (3.5-5.1) g/dL Urine 02/19/24 Range/Units 17:26 Urine Color Yellow (Yellow) Urine Appearance Clear (Clear) Urine pH 5.0 (5.0-9.0) Ur Specific [place] 1.037 H (1.001-1.035) Urine Protein Negative (Negative) mg/dL Urine Glucose (UA) Negative (Negative) mg/dL
[2024-02-20 10:51] LABS: Hematocrit 32.3 % (37.0-47.0); Hemoglobin 10.4 g/dL (12.0-15.0)
[2024-02-20] MEDS: SODIUM CHLORIDE 0.9% IV 1,000 ML 100 ML IV CONT (11:05)
[2024-02-20] MEDS: BISACODYL 5 MG TABLET EC 20 MG PO (11:07)
[2024-02-20] MEDS: polyethylene glycoL 3350 238 GM BOTTLE PO (12:52)
[2024-02-20] MEDS: MIRTAZAPINE 30 MG TABLET PO (17:54)
[2024-02-20] MEDS: ATORVASTATIN 20 MG TABLET PO (17:55)
[2024-02-20] MEDS: FLUTICASONE/SALMETEROL 115-21 MCG INHALER 1 PUFF 2 PUFF INHALATION (20:57)
[2024-02-21] VITALS (12 sets, daily range): BP systolic 103–129; BP diastolic 45–70; PULSE 68–85; RESP 18–20; TEMP 36.1–36.7; O2SAT 96–100
[2024-02-21] MEDS: SODIUM CHLORIDE 0.9% IV 1,000 ML 100 ML IV CONT ×2 (03:03→13:49)
[2024-02-21] MEDS: polyethylene glycoL 3350 238 GM BOTTLE 119 GM PO (03:57)
[2024-02-21] MEDS: metroNIDAZOLE 500 MG/ISO 100ML 500 MG/100 ML BAG 100 MG IVPB ×3 (05:14→21:39)
--- NOTE | 2024-02-21 05:23 | PC.NURSE ---
02/20/24 @7125 true Airam had patient on bsc during bowel prep. Patient became unresponsive and limp while on bsc. [facility] called for nursing assistance, and Rapid Response team activated.
[2024-02-21 06:24] LABS: Basophils Percent Auto 0.5 % (0.2-1.2); Eosinophils Absolute Auto 0.1 K/mm3 (0-0.3); Eosinophils Percent Auto 1.2 % (0-4.4); Hematocrit 32.3 % (37.0-47.0); Hemoglobin 10.4 g/dL (12.0-15.0); Immature Granulocyte Absolute 0.03 K/mm3 (0.00-0.031); Immature Granulocyte Percent A 0.7 % (0-0.5); Lymphocytes Absolute Auto 0.63 K/mm3 (0.9-3.2); Lymphocytes Percent Auto 15.4 % (18.3-44.2); Mean Corpuscular HGB Conc 32.2 g/dl (32-36); Mean Corpuscular Hemoglobin 31.1 pg (26-34); Mean Corpuscular Volume 96.7 fl (80-100); Mean Platelet Volume 12.8 fl (7.4-10.4); Monocytes Absolute Auto 0.2 K/mm3 (0.1-0.6); Monocytes Percent Auto 4.9 % (2.6-8.5); Neutrophils Absolute Auto 3.2 K/mm3 (1.3-6.7); Neutrophils Percent Auto 77.3 % (45.5-73.1); Platelet Count Result 104 k/mm3 (150-375); Red Blood Count 3.34 M/mm3 (4.2-5.4); Red Cell Distribution Width 18.2 % (11.5-14.5); White Blood Count 4.1 K/mm3 (4.5-10.0)
[2024-02-21 06:32] LABS: Alanine Aminotransferase 10 U/L (6-35); Albumin Level 2.9 g/dL (3.5-5.1); Alkaline Phosphatase 61 U/L (38-126); Anion Gap 9 mmol/L (4-12); Aspartate Amino Transferase 20 U/L (14-36); Bilirubin,Total 0.6 mg/dL (0.2-1.3); Blood Urea Nitrogen 22 mg/dL (7-17); Calcium 8.1 mg/dL (8.4-10.2); Carbon Dioxide 20 mmol/L (22-30); Chloride 112 mmol/L (98-107); Estimated CRCL calculation 49 ml/min; Estimated Glomerular Filt Rate > 60; Glucose 115 mg/dL (65-110); Potassium 3.4 mmol/L (3.4-5.0); Sodium 141 mmol/L (137-145)
[2024-02-21] MEDS: FLUTICASONE/SALMETEROL 115-21 MCG INHALER 1 PUFF 2 PUFF INHALATION (08:25)
[2024-02-21] MEDS: METOPROLOL SUCCINATE EXT REL 12.5 MG TABCR PO (10:30)
[2024-02-21] MEDS: allopurinoL 100 MG TABLET PO (10:30)
[2024-02-21] MEDS: POTASSIUM CHLORIDE 20 MEQ ER TABLET 40 MEQ PO (10:30)
[2024-02-21] MEDS: PANTOPRAZOLE 40 MG TABLET PO (10:31)
--- NOTE | 2024-02-21 15:42 | P.PNIM_ITS ---
Progress Note: A&P Assessment and Plan (1) Melena: Code(s): K92.1 - Melena Status: Acute Assessment and Plan: * Reporting dark stools on Eliquis for AFib * Hemoglobin stable * Continue to trend * Transfuse as needed for hemoglobin less than 7.0 * Hemoglobin stable at 10.4 * Patient was unable to get colonoscopy and EGD done today as she had not finished her bowel prep. Plan for EGD tomorrow. (2) Rectal mass: Code(s): K62.89 - Other specified diseases of anus and rectum Status: Acute Assessment and Plan: * GI consulted and following * CT of abdomen and pelvis showing severe fecal impaction with findings concerning for sterile coral colitis, possible rectal mass. * Plan for EGD/colonoscopy tomorrow (3) Anemia, normocytic normochromic: Code(s): D64.9 - Anemia, unspecified Status: Acute Assessment and Plan: * GI consulted * Hgb 10.4 today * Continue to trend * Transfuse for Hgb < 7.0 (4) Hyperlipidemia: Code(s): E78.5 - Hyperlipidemia, unspecified Status: Acute Assessment and Plan: * continue Atorvastatin (5) Stercoral colitis: Code(s): K52.89 - Other specified noninfective gastroenteritis and colitis Status: Acute Assessment and Plan: * Continue bowel prep for EGD/colonoscopy in the morning (6) Pancytopenia: Code(s): D61.818 - Other pancytopenia Status: Acute Assessment and Plan: * White blood cell count 4.1, RBC 3.34, platelet count 104 * continue to trend * likely secondary to stercoral colitis, rectal mass??? Time Spent With Patient Time with patient: 25 - 35 minutes Subjective Date/time seen: 02/21/24 15:42 Interval history: Interval history: This is a 73 year old female who presented to the hospital yesterday with melena stools, abdominal pain, fatigue, and weight loss. Work up in the hospital included a chest x-ray that was negative for any acute findings. Head CT was also negative for any acute findings. Abdomen/Pelvis CTA revealed severe fecal impaction with findings concerning for stercoral colitis, possible rectal mass. the rectum was noted to be dilated to 10.7cm with surrounding wall thickening and inflammatory changes. Initial Labs shown a normal WBC of 4.6, Hgb 11.1, INR 2.1, creatinine 1.50, eGFR 34, lactic acid normal at 1.2, proBNP 1560, negative troponin, Lipase low at 19, TSH normal at 4.380. UA was obtained and shown a u rine specific gravity of 1.037, trace ketones, otherwise unremarkable. EKG showing atrial paced rhythm with a rate of 78, QTc 531. Patient was given IVF, Protonix, Rocephin, Flagyl, Miralax and Dulcolax while in the ER. GI was consulted. Subjective: No new complaints today. Labs reviewed. Review of Systems Review of Systems: All systems reviewed & are unremarkable except as noted in HPI and below Constitutional: Constitutional: Reports as per HPI and Reports no additional constitutional complaints Eyes: Eyes: Reports as per HPI and Reports no additional eye complaints ENT: Reports system reviewed and no additional complaints, except as documented and Reports as per HPI Cardiovascular: Cardiovascular: Reports as per HPI and Reports no additional cardiovascular complaints Respiratory: Respiratory: Reports as per HPI and Reports no additional respiratory complaints Gastrointestinal: Gastrointestinal: Reports as per HPI and Reports no additional gastrointestinal complaints Genitourinary: Genitourinary: Reports no additional female genitourinary complaints and Reports as per HPI Musculoskeletal: Musculoskeletal: Reports no additional musculoskeletal complaints and Reports as per HPI Integumentary/Breasts: Skin/Breast: Reports system reviewed and no additional complaints, except as docu and Reports as per HPI Neurologic: Reports system reviewed and no additional complaints, except as documented and Reports as per HPI Psychiatric: Psychiatric: Reports no additional psychiatric complaints and Reports as per HPI Exam Narrative: General: In no acute distress, well nourished Cardiac: Normal S1 and S2. No murmur, gallops or friction rubs, peripheral pulses intact. Respiratory: Lungs clear to auscultation, no adventitious lung sounds, currently on room air Gastrointestinal: soft, non-distended, non-tender, normoactive bowel sounds. : voiding without difficulty. Neuro: Alert and oriented x3 Psych: Rambling speech, anxious,suspicious demeanor Objective Data Vital Signs Vital Signs: Vital Signs - 24 hr 02/20/24 16:00 02/20/24 20:00 02/20/24 20:00 Temperature Pulse Rate 74 85 Respiratory Rate Blood Pressure Pulse Oximetry 94 Oxygen Delivery Nasal Cannula Oxygen Flow Rate 3 Fraction of Inspired Oxygen 02/20/24 21:29 02/20/24 22:20 02/21/24 00:00 Temperature 97.2 F L 97.3 F L Pulse Rate 77 85 Respiratory Rate 20 20 Blood Pressure 99/53 L 129/70 Pulse Oximetry 95 100 96 Oxygen Delivery Nasal Cannula Oxygen Flow Rate 3 Fraction of Inspired Oxygen 02/21/24 00:00 02/20/24 23:47 02/21/24 04:00 Temperature Pulse Rate 75 83 79 Respiratory Rate 20 Blood Pressure 129/70 Pulse Oximetry 96 Oxygen Delivery Room Air Oxygen Flow Rate Fraction of Inspired Oxygen 02/21/24 05:00 02/21/24 09:04 02/21/24 10:30 Temperature 97.0 F L 97.2 F L Pulse Rate 69 74 68 Respiratory Rate 20 18 Blood Pressure 110/63 105/60 Pulse Oximetry 100 98 Oxygen Delivery Oxygen Flow Rate Fraction of Inspired Oxygen 02/21/24 13:30 02/21/24 08:00 02/21/24 08:00 Temperature 98.0 F Pulse Rate 77 77 Respiratory Rate 18 Blood Pressure 103/67 Pulse Oximetry 96 96 Oxygen Delivery Room Air Oxygen Flow Rate Fraction of Inspired Oxygen 21 Intake/Output Intake/Output: Intake & Output 02/18/24 02/19/24 02/20/24 02/21/24 23:59 23:59 23:59 23:59 Intake Total 2560 2710 1100 Output Total 150 6 Balance 2410 2710 1094 Meds/Results Medications: Active Medications Generic Name Dose Route Start Last Admin Trade Name Freq PRN Reason Stop Dose Admin Acetaminophen 650 mg 02/19/24 21:10 Acetaminophen 325 Mg Tablet PO Q4H PRN Mild Pain (1-3) or Fever Allopurinol 100 mg 02/21/24 09:00 02/21/24 10:30 Allopurinol 100 Mg Tablet PO 100 mg DAILY DAIANA Administration Atorvastatin Calcium 20 mg 02/20/24 18:00 02/20/24 17:55 Atorvastatin 20 Mg Tablet PO 20 mg QPM DAIANA Administration Dextrose 12.5 gm 02/20/24 06:39 02/20/24 06:45 Dextrose 50% 25 Gm/50 Ml Syringe IV PUSH 12.5 gm PRN PRN Administration Hypoglycemia Protocol Glucagon 1 mg 02/20/24 06:39 Glucagon For Inj 1 Mg Vial IM PRN PRN Hypoglycemia Protocol Glucose 15 gm 02/20/24 06:39 Glucose Oral Gel 15 Gm Of Glucse In 37.5 Gm Tube PO PRN PRN Hypoglycemia Protocol Ceftriaxone Sodium 1 gm in 50 mls @ 100 mls/hr 02/20/24 20:00 02/20/24 20:47 Rocephin 1 Gm/Ns 50 Ml IVPB Infused Q24H DAIANA Infusion Metronidazole 500 mg in 100 mls @ 100 mls/hr 02/20/24 06:00 02/21/24 13:48 Flagyl 500 Mg/Iso Soln 100 Ml IVPB 100 mls/hr Q8H DAIANA Administration Sodium Chloride 1,000 mls @ 100 mls/hr 02/19/24 21:10 02/21/24 13:49 Normal Saline Iv IV CONT 100 mls/hr .Q10H DAIANA Administration Dextrose 1,000 mls @ 100 mls/hr 02/20/24 06:39 Dextrose 5% 1,000 Ml IVPB PRN PRN Hypoglycemia Protocol Metoprolol Succinate 12.5 mg 02/21/24 09:00 02/21/24 10:30 Metoprolol Succinate Ext Rel 12.5 Mg Tabcr PO 12.5 mg DAILY DAIANA Administration Mirtazapine 30 mg 02/20/24 18:00 02/20/24 17:54 Mirtazapine 30 Mg Tablet PO 30 mg QPM DAIANA Administration Pantoprazole Sodium 40 mg 02/21/24 09:00 02/21/24 10:31 Pantoprazole 40 Mg Tablet PO 40 mg QAM DAIANA Administration Fluticasone/Salmeterol 2 puff 02/20/24 10:45 02/21/24 08:25 Fluticasone/Salmeterol 115-21 Mcg Inhaler 1 Puff INHALATION 2 puff Q12HRT DAIANA Administration Radiology Results: ITS Impressions Chest X-Ray 02/19/24 15:48 IMPRESSION: No acute cardiopulmonary process. Head CT 02/19/24 16:34 IMPRESSION: No acute intracranial process. Abdomen/Pelvis CTA 02/19/24 16:49 IMPRESSION: Severe fecal impaction with findings concerning for stercoral colitis. Possible rectal mass. No source for GI bleeding identified. Labs Labs: Laboratory Results - last 24 hr 02/21/24 05:43 WBC 4.1 L RBC 3.34 L Hgb 10.4 L Hct 32.3 L MCV 96.7 MCH 31.1 MCHC 32.2 RDW 18.2 H Plt Count 104 L MPV 12.8 H Immature Gran % (Auto) 0.7 H Neut % (Auto) 77.3 H Lymph % (Auto) 15.4 L [place] % (Auto) 4.9 Eos % (Auto) 1.2 Baso % (Auto) 0.5 Lymph # (Auto) 0.63 L [place] # (Auto) 0.2 Eos # (Auto) 0.1 Baso # (Auto) 0.0 Abs Immat Gran (auto) 0.03 Absolute Neuts (auto) 3.2 Absolute Nucleated RBC 0.000 Nucleated RBC % 0.0 Sodium 141 Potassium 3.4 Chloride 112 H Carbon Dioxide 20 L Anion Gap 9 BUN 22 H D Creatinine 0.80 Estim Creat Clear Calc 49 Estimated GFR > 60 Glucose 115 H Calcium 8.1 L Total Bilirubin 0.6 AST 20 ALT 10 Alkaline Phosphatase 61 Total Protein 5.0 L Albumin 2.9 L Quality VTE Prophylaxis VTE prophylaxis: mechanical ordered
--- NOTE | 2024-02-21 17:54 | WPDGIPROGNO ---
Progress Note: A&P Assessment and Plan (1) Melena: Code(s): K92.1 - Melena Status: Acute Assessment and Plan: Even though the patient hemoglobin and hemodynamic status have been stable, there is a history of melena and a recent drop in hematocrit. The patient agrees to have an EGD tomorrow afternoon, for which she will be kept NPO after midnight. She even agrees to have an attempted colonoscopy at some other date. Time Spent With Patient Time with patient: less than 15 minutes Subjective Date/time seen: 02/21/24 17:54 Interval history: The patient did not complete colonoscopy prep this morning. She was not cooperative. Objective Data Vital Signs Vital Signs: Vital Signs - 24 hr 02/20/24 20:00 02/20/24 20:00 02/20/24 21:29 Temperature Pulse Rate 85 Respiratory Rate Blood Pressure Pulse Oximetry 94 95 Oxygen Delivery Nasal Cannula Nasal Cannula Oxygen Flow Rate 3 3 Fraction of Inspired Oxygen 02/20/24 22:20 02/21/24 00:00 02/21/24 00:00 Temperature 97.2 F L 97.3 F L Pulse Rate 77 85 75 Respiratory Rate 20 20 Blood Pressure 99/53 L 129/70 Pulse Oximetry 100 96 Oxygen Delivery Oxygen Flow Rate Fraction of Inspired Oxygen 02/20/24 23:47 02/21/24 04:00 02/21/24 05:00 Temperature 97.0 F L Pulse Rate 83 79 69 Respiratory Rate 20 20 Blood Pressure 129/70 110/63 Pulse Oximetry 96 100 Oxygen Delivery Room Air Oxygen Flow Rate Fraction of Inspired Oxygen 02/21/24 09:04 02/21/24 10:30 02/21/24 13:30 Temperature 97.2 F L 98.0 F Pulse Rate 74 68 77 Respiratory Rate 18 18 Blood Pressure 105/60 103/67 Pulse Oximetry 98 96 Oxygen Delivery Oxygen Flow Rate Fraction of Inspired Oxygen 02/21/24 08:00 02/21/24 08:00 Temperature Pulse Rate 77 Respiratory Rate Blood Pressure Pulse Oximetry 96 Oxygen Delivery Room Air Oxygen Flow Rate Fraction of Inspired Oxygen 21 Intake/Output Intake/Output: Intake & Output 02/18/24 02/19/24 02/20/24 02/21/24 23:59 23:59 23:59 23:59 Intake Total 2560 2710 1340 Output Total 150 6 Balance 2410 2710 1334 Meds/Results Medications: Active Medications Generic Name Dose Route Start Last Admin Trade Name Freq PRN Reason Stop Dose Admin Acetaminophen 650 mg 02/19/24 21:10 Acetaminophen 325 Mg Tablet PO Q4H PRN Mild Pain (1-3) or Fever Allopurinol 100 mg 02/21/24 09:00 02/21/24 10:30 Allopurinol 100 Mg Tablet PO 100 mg DAILY DAIANA Administration Atorvastatin Calcium 20 mg 02/20/24 18:00 02/20/24 17:55 Atorvastatin 20 Mg Tablet PO 20 mg QPM DAIANA Administration Dextrose 12.5 gm 02/20/24 06:39 02/20/24 06:45 Dextrose 50% 25 Gm/50 Ml Syringe IV PUSH 12.5 gm PRN PRN Administration Hypoglycemia Protocol Glucagon 1 mg 02/20/24 06:39 Glucagon For Inj 1 Mg Vial IM PRN PRN Hypoglycemia Protocol Glucose 15 gm 02/20/24 06:39 Glucose Oral Gel 15 Gm Of Glucse In 37.5 Gm Tube PO PRN PRN Hypoglycemia Protocol Ceftriaxone Sodium 1 gm in 50 mls @ 100 mls/hr 02/20/24 20:00 02/20/24 20:47 Rocephin 1 Gm/Ns 50 Ml IVPB Infused Q24H DAIANA Infusion Metronidazole 500 mg in 100 mls @ 100 mls/hr 02/20/24 06:00 02/21/24 13:48 Flagyl 500 Mg/Iso Soln 100 Ml IVPB 100 mls/hr Q8H DAIANA Administration Sodium Chloride 1,000 mls @ 100 mls/hr 02/19/24 21:10 02/21/24 13:49 Normal Saline Iv IV CONT 100 mls/hr .Q10H DAIANA Administration Dextrose 1,000 mls @ 100 mls/hr 02/20/24 06:39 Dextrose 5% 1,000 Ml IVPB PRN PRN Hypoglycemia Protocol Metoprolol Succinate 12.5 mg 02/21/24 09:00 02/21/24 10:30 Metoprolol Succinate Ext Rel 12.5 Mg Tabcr PO 12.5 mg DAILY DAIANA Administration Mirtazapine 30 mg 02/20/24 18:00 02/20/24 17:54 Mirtazapine 30 Mg Tablet PO 30 mg QPM DAIANA Administration Pantoprazole Sodium 40 mg 02/21/24 09:00 02/21/24 10:31 Pantoprazole 40 Mg Tablet PO 40 mg QAM DAIANA Administration Fluticasone/Salmeterol 2 puff 02/20/24 10:45 02/21/24 08:25 Fluticasone/Salmeterol 115-21 Mcg Inhaler 1 Puff INHALATION 2 puff Q12HRT DAIANA Administration Radiology Results: ITS Impressions Chest X-Ray 02/19/24 15:48 IMPRESSION: No acute cardiopulmonary process. Head CT 02/19/24 16:34 IMPRESSION: No acute intracranial process. Abdomen/Pelvis CTA 02/19/24 16:49 IMPRESSION: Severe fecal impaction with findings concerning for stercoral colitis. Possible rectal mass. No source for GI bleeding identified. Labs Labs: Laboratory Results - last 24 hr 02/21/24 05:43 WBC 4.1 L RBC 3.34 L Hgb 10.4 L Hct 32.3 L MCV 96.7 MCH 31.1 MCHC 32.2 RDW 18.2 H Plt Count 104 L MPV 12.8 H Immature Gran % (Auto) 0.7 H Neut % (Auto) 77.3 H Lymph % (Auto) 15.4 L [place] % (Auto) 4.9 Eos % (Auto) 1.2 Baso % (Auto) 0.5 Lymph # (Auto) 0.63 L [place] # (Auto) 0.2 Eos # (Auto) 0.1 Baso # (Auto) 0.0 Abs Immat Gran (auto) 0.03 Absolute Neuts (auto) 3.2 Absolute Nucleated RBC 0.000 Nucleated RBC % 0.0 Sodium 141 Potassium 3.4 Chloride 112 H Carbon Dioxide 20 L Anion Gap 9 BUN 22 H D Creatinine 0.80 Estim Creat Clear Calc 49 Estimated GFR > 60 Glucose 115 H Calcium 8.1 L Total Bilirubin 0.6 AST 20 ALT 10 Alkaline Phosphatase 61 Total Protein 5.0 L Albumin 2.9 L
[2024-02-22] VITALS (14 sets, daily range): BP systolic 99–142; BP diastolic 56–88; PULSE 70–89; RESP 14–21; TEMP 36.1–36.5; O2SAT 10–100
[2024-02-22] MEDS: SODIUM CHLORIDE 0.9% IV 1,000 ML 100 ML IV CONT ×2 (01:00→13:52)
[2024-02-22] MEDS: metroNIDAZOLE 500 MG/ISO 100ML 500 MG/100 ML BAG 100 MG IVPB ×2 (05:35→13:45)
[2024-02-22 05:49] LABS: Basophils Percent Auto 0.5 % (0.2-1.2); Eosinophils Absolute Auto 0.1 K/mm3 (0-0.3); Eosinophils Percent Auto 1.8 % (0-4.4); Hematocrit 30.5 % (37.0-47.0); Hemoglobin 9.8 g/dL (12.0-15.0); Immature Granulocyte Absolute 0.03 K/mm3 (0.00-0.031); Immature Granulocyte Percent A 0.8 % (0-0.5); Lymphocytes Absolute Auto 0.58 K/mm3 (0.9-3.2); Lymphocytes Percent Auto 14.8 % (18.3-44.2); Mean Corpuscular HGB Conc 32.1 g/dl (32-36); Mean Corpuscular Hemoglobin 31.3 pg (26-34); Mean Corpuscular Volume 97.4 fl (80-100); Mean Platelet Volume 12.7 fl (7.4-10.4); Monocytes Absolute Auto 0.2 K/mm3 (0.1-0.6); Monocytes Percent Auto 5.1 % (2.6-8.5); Platelet Count Result 89 k/mm3 (150-375); Red Blood Count 3.13 M/mm3 (4.2-5.4); White Blood Count 3.9 K/mm3 (4.5-10.0)
[2024-02-22 06:05] LABS: Alanine Aminotransferase 7 U/L (6-35); Albumin Level 2.3 g/dL (3.5-5.1); Alkaline Phosphatase 58 U/L (38-126); Anion Gap 4 mmol/L (4-12); Aspartate Amino Transferase 18 U/L (14-36); Bilirubin,Total 0.6 mg/dL (0.2-1.3); Blood Urea Nitrogen 15 mg/dL (7-17); Carbon Dioxide 18 mmol/L (22-30); Chloride 116 mmol/L (98-107); Estimated CRCL calculation 49 ml/min; Estimated Glomerular Filt Rate > 60; Glucose 70 mg/dL (65-110); Potassium 3.3 mmol/L (3.4-5.0); Sodium 138 mmol/L (137-145)
--- NOTE | 2024-02-22 10:59 | P.PNAN_ITS ---
Anes - Initial Pre Proc Eval Procedure: Operation Date: 02/22/24 14:30 Proposed Procedures p Esophagogastroduodenoscopy - Bin Mosher MD Date/Time: 02/22/24 10:59 Surgeon: Lesvia Donohue APRN Pre Op Diagnosis: Melena Patient Data Age: 73 Gender: F Height: 1.65 m Weight: 57.1 kg Last Vital Signs Temp 36.2 C L 02/22/24 08:00 Pulse 76 02/22/24 09:23 Resp 16 02/22/24 08:00 BP 110/60 02/22/24 08:00 Pulse Ox 99 02/22/24 08:00 O2 Del Method Room Air 02/22/24 08:00 O2 Flow Rate 3 02/22/24 07:15 FiO2 21 02/21/24 08:00 Allergies Allergy/AdvReac Type Severity Reaction Status Date / Time No Known Allergies Allergy Verified 02/19/24 12:11 Home Medications Medication Instructions Recorded Confirmed Type albuterol sulfate 90 mcg/actuation 1 - 2 puff inhalation Q6H PRN 02/19/24 02/19/24 History aerosol inhaler sob/wheezing allopurinol 100 mg tablet 100 mg PO DAILY 02/19/24 02/19/24 History apixaban 5 mg tablet (Eliquis) 5 mg PO BID 02/19/24 02/19/24 History atorvastatin 20 mg tablet 20 mg PO QPM 02/19/24 02/19/24 History cholecalciferol (vitamin D3) 1,250 1,250 mcg PO WEEKLY 02/19/24 02/19/24 History mcg (50,000 unit) capsule ferrous sulfate 325 mg (65 mg 325 mg PO BID 02/19/24 02/19/24 History iron) tablet fluticasone propionate 115 2 puff inhalation Q12H 02/19/24 02/19/24 History mcg-salmeterol 21 mcg/actuation HFA inhaler metoprolol succinate 25 mg 12.5 mg PO DAILY 02/19/24 02/19/24 History tablet,extended release 24 hr mirtazapine 30 mg tablet 30 mg PO QPM 02/19/24 02/19/24 History omeprazole 20 mg capsule,delayed 20 mg PO DAILY 02/19/24 02/19/24 History release Laboratory Tests 02/22/24 05:20 WBC 3.9 L K/mm3 (4.5-10.0) RBC 3.13 L M/mm3 (4.2-5.4) Hgb 9.8 L g/dL (12.0-15.0) Hct 30.5 L % (37.0-47.0) MCV 97.4 fl (80-100) MCH 31.3 pg (26-34) MCHC 32.1 g/dl (32-36) RDW 18.0 H % (11.5-14.5) Plt Count 89 L k/mm3 (150-375) MPV 12.7 H fl (7.4-10.4) Immature Gran % (Auto) 0.8 H % (0-0.5) Neut % (Auto) 77.0 H % (45.5-73.1) Lymph % (Auto) 14.8 L % (18.3-44.2) [place] % (Auto) 5.1 % (2.6-8.5) Eos % (Auto) 1.8 % (0-4.4) Baso % (Auto) 0.5 % (0.2-1.2) Lymph # (Auto) 0.58 L K/mm3 (0.9-3.2) [place] # (Auto) 0.2 K/mm3 (0.1-0.6) Eos # (Auto) 0.1 K/mm3 (0-0.3) Baso # (Auto) 0.0 K/mm3 (0.0-0.1) Abs Immat Gran (auto) 0.03 K/mm3 (0.00-0.031) Absolute Neuts (auto) 3.0 K/mm3 (1.3-6.7) Absolute Nucleated RBC 0.000 K/mm3 (0.0-0.012) Nucleated RBC % 0.0 % (0.0-0.2) Sodium 138 mmol/L (137-145) Potassium 3.3 L mmol/L (3.4-5.0) Chloride 116 H mmol/L (98-107) Carbon Dioxide 18 L mmol/L (22-30) Anion Gap 4 mmol/L (4-12) BUN 15 D mg/dL (7-17) Creatinine 0.80 mg/dL (0.7-1.0) Estim Creat Clear Calc 49 ml/min Estimated GFR > 60 (59 - ) Glucose 70 mg/dL (65-110) Calcium 8.0 L mg/dL (8.4-10.2) Total Bilirubin 0.6 mg/dL (0.2-1.3) AST 18 U/L (14-36) ALT 7 U/L (6-35) Alkaline Phosphatase 58 U/L (38-126) Total Protein 4.0 L g/dL (6.3-8.2) Albumin 2.3 L g/dL (3.5-5.1) Patient hx anesthesia problems: none Family hx anesthesia problems: none Results Review: All pre-operative results and documents have been reviewed as part of the pre- operative evaluation. [facility] Past Medical History Medical History Atrial fibrillation Coronary artery disease CVA (cerebral vascular accident) Hyperlipidemia Pacemaker Surgical History Surgical History H/O mitral valve replacement Bovine Hx of CABG Family History Family History Other Acute myocardial infarction Social History Social History Smoking status: Former smoker Substance use type: does not use Do You Feel Safe in your Home?: Yes Lack of Transportation: No Lack of Food: Never True Current Housing: I Have Housing Concerned About Future Housing: No Difficulty Paying Gas/Electric Bills: No Difficulty Paying for Meds: No Currently Unemployed: No Education: High School Diploma/GED Difficulty w/ Childcare or Family Care: No Spiritual care concerns: No Anes - Eval Final PreProcedure Day of Procedure 02/22/24 10:59 Patient weight: normal Heart: irregular rhythm Lungs: decreased breath sounds Airway: Mallampati scale class II Neurological: other (alert) Last oral intake: >/= 8 hours ASA classification: IV Emergent: no Anesthetic plan: proceed Anesthesia type and monitoring: general GIVS and standard monitoring Results Review: All pre-operative results and documents have been reviewed as part of the pre- operative evaluation. Informed Consent: The patient's anesthetic plan and its attendant risks and benefits were discussed with the patient/family/POA. Questions were solicited and answers provided to the satisfaction of the patient/family/POA.
[2024-02-22] MEDS: LACTATED RINGERS 1,000 ML 150 ML IV CONT (11:04)
--- NOTE | 2024-02-22 11:32 | WPDGIPROGNO ---
Progress Note: A&P Assessment and Plan (1) Melena: Code(s): K92.1 - Melena Status: Acute Assessment and Plan: The patient is here for EGD for the evaluation of melena episode she had days ago. She is currently not bleeding actively. Recommendations to follow after EGD. Subjective Date/time seen: 02/22/24 11:32 Objective Data Vital Signs Vital Signs: Vital Signs - 24 hr 02/21/24 13:30 02/21/24 12:00 02/21/24 16:00 Temperature 98.0 F Pulse Rate 77 84 75 Respiratory Rate 18 Blood Pressure 103/67 Pulse Oximetry 96 Oxygen Delivery Oxygen Flow Rate 02/21/24 19:46 02/21/24 20:00 02/21/24 22:20 Temperature 97.0 F L Pulse Rate 75 69 Respiratory Rate 20 Blood Pressure 107/45 L Pulse Oximetry 96 100 Oxygen Delivery Nasal Cannula Oxygen Flow Rate 3 02/22/24 00:00 02/22/24 01:33 02/22/24 04:00 Temperature 97.0 F L Pulse Rate 75 70 89 Respiratory Rate 20 Blood Pressure 118/61 Pulse Oximetry 99 Oxygen Delivery Oxygen Flow Rate 02/22/24 05:59 02/22/24 07:15 02/22/24 09:23 Temperature 97.1 F L Pulse Rate 79 76 Respiratory Rate 20 Blood Pressure 100/56 L Pulse Oximetry 100 99 Oxygen Delivery Nasal Cannula Oxygen Flow Rate 3 02/22/24 08:00 02/22/24 08:00 02/22/24 10:59 Temperature 97.1 F L 97 F L Pulse Rate 72 70 Respiratory Rate 16 14 Blood Pressure 110/60 101/66 Pulse Oximetry 99 97 Oxygen Delivery Room Air Room Air Oxygen Flow Rate 02/22/24 08:00 Temperature Pulse Rate 75 Respiratory Rate Blood Pressure Pulse Oximetry Oxygen Delivery Oxygen Flow Rate Intake/Output Intake/Output: Intake & Output 02/19/24 02/20/24 02/21/24 02/22/24 23:59 23:59 23:59 23:59 Intake Total 2560 2710 2590 Output Total 150 6 Balance 2410 2710 2584 Meds/Results Medications: Active Medications Generic Name Dose Route Start Last Admin Trade Name Freq PRN Reason Stop Dose Admin Acetaminophen 650 mg 02/19/24 21:10 Acetaminophen 325 Mg Tablet PO Q4H PRN Mild Pain (1-3) or Fever Allopurinol 100 mg 02/21/24 09:00 02/22/24 09:23 Allopurinol 100 Mg Tablet PO Not Given DAILY DAIANA Atorvastatin Calcium 20 mg 02/20/24 18:00 02/21/24 18:16 Atorvastatin 20 Mg Tablet PO Not Given QPM DAIANA Dextrose 12.5 gm 02/20/24 06:39 02/20/24 06:45 Dextrose 50% 25 Gm/50 Ml Syringe IV PUSH 12.5 gm PRN PRN Administration Hypoglycemia Protocol Glucagon 1 mg 02/20/24 06:39 Glucagon For Inj 1 Mg Vial IM PRN PRN Hypoglycemia Protocol Glucose 15 gm 02/20/24 06:39 Glucose Oral Gel 15 Gm Of Glucse In 37.5 Gm Tube PO PRN PRN Hypoglycemia Protocol Ceftriaxone Sodium 1 gm in 50 mls @ 100 mls/hr 02/20/24 20:00 02/21/24 21:24 Rocephin 1 Gm/Ns 50 Ml IVPB Infused Q24H DAIANA Infusion Metronidazole 500 mg in 100 mls @ 100 mls/hr 02/20/24 06:00 02/22/24 05:35 Flagyl 500 Mg/Iso Soln 100 Ml IVPB 100 mls/hr Q8H DAIANA Administration Sodium Chloride 1,000 mls @ 100 mls/hr 02/19/24 21:10 02/22/24 01:00 Normal Saline Iv IV CONT 100 mls/hr .Q10H DAIANA Administration Dextrose 1,000 mls @ 100 mls/hr 02/20/24 06:39 Dextrose 5% 1,000 Ml IVPB PRN PRN Hypoglycemia Protocol Lactated Ringer's 1,000 mls @ 150 mls/hr 02/22/24 10:55 02/22/24 11:04 Lr - Lactated Ringers Iv IV CONT 150 mls/hr .Q6H40M DAIANA Administration Metoprolol Succinate 12.5 mg 02/21/24 09:00 02/22/24 09:23 Metoprolol Succinate Ext Rel 12.5 Mg Tabcr PO Not Given DAILY DAIANA Mirtazapine 30 mg 02/20/24 18:00 02/21/24 18:16 Mirtazapine 30 Mg Tablet PO Not Given QPM DAIANA Pantoprazole Sodium 40 mg 02/21/24 09:00 02/22/24 09:20 Pantoprazole 40 Mg Tablet PO Not Given QAM [facility] Fluticasone/Salmeterol 2 puff 02/20/24 10:45 02/22/24 07:14 Fluticasone/Salmeterol 115-21 Mcg Inhaler 1 Puff INHALATION Not Given Q12HRT [facility] Radiology Results: ITS Impressions Chest X-Ray 02/19/24 15:48 IMPRESSION: No acute cardiopulmonary process. Head CT 02/19/24 16:34 IMPRESSION: No acute intracranial process. Abdomen/Pelvis CTA 02/19/24 16:49 IMPRESSION: Severe fecal impaction with findings concerning for stercoral colitis. Possible rectal mass. No source for GI bleeding identified. Labs Labs: Laboratory Results - last 24 hr 02/22/24 05:20 WBC 3.9 L RBC 3.13 L Hgb 9.8 L Hct 30.5 L MCV 97.4 MCH 31.3 MCHC 32.1 RDW 18.0 H Plt Count 89 L MPV 12.7 H Immature Gran % (Auto) 0.8 H Neut % (Auto) 77.0 H Lymph % (Auto) 14.8 L [place] % (Auto) 5.1 Eos % (Auto) 1.8 Baso % (Auto) 0.5 Lymph # (Auto) 0.58 L [place] # (Auto) 0.2 Eos # (Auto) 0.1 Baso # (Auto) 0.0 Abs Immat Gran (auto) 0.03 Absolute Neuts (auto) 3.0 Absolute Nucleated RBC 0.000 Nucleated RBC % 0.0 Sodium 138 Potassium 3.3 L Chloride 116 H Carbon Dioxide 18 L Anion Gap 4 BUN 15 D Creatinine 0.80 Estim Creat Clear Calc 49 Estimated GFR > 60 Glucose 70 Calcium 8.0 L Total Bilirubin 0.6 AST 18 ALT 7 Alkaline Phosphatase 58 Total Protein 4.0 L Albumin 2.3 L
--- NOTE | 2024-02-22 11:48 | WPDGIPROGNO ---
Progress Note: A&P Assessment and Plan (1) Melena: Code(s): K92.1 - Melena Status: Acute Plan The patient is no longer having melena. EGD done this morning was totally normal. However, a colonoscopy is still desirable because of the imaging findings, however patient is definitely not willing to proceed with preparation. Will sign off for now, however if patient has recurrent melena or changes her mind regarding future colonoscopy, will be glad to re-evaluate her. Subjective Date/time seen: 02/22/24 11:48 Objective Data Vital Signs Vital Signs: Vital Signs - 24 hr 02/21/24 13:30 02/21/24 12:00 02/21/24 16:00 Temperature 98.0 F Pulse Rate 77 84 75 Respiratory Rate 18 Blood Pressure 103/67 Pulse Oximetry 96 Oxygen Delivery Oxygen Flow Rate 02/21/24 19:46 02/21/24 20:00 02/21/24 22:20 Temperature 97.0 F L Pulse Rate 75 69 Respiratory Rate 20 Blood Pressure 107/45 L Pulse Oximetry 96 100 Oxygen Delivery Nasal Cannula Oxygen Flow Rate 3 02/22/24 00:00 02/22/24 01:33 02/22/24 04:00 Temperature 97.0 F L Pulse Rate 75 70 89 Respiratory Rate 20 Blood Pressure 118/61 Pulse Oximetry 99 Oxygen Delivery Oxygen Flow Rate 02/22/24 05:59 02/22/24 07:15 02/22/24 09:23 Temperature 97.1 F L Pulse Rate 79 76 Respiratory Rate 20 Blood Pressure 100/56 L Pulse Oximetry 100 99 Oxygen Delivery Nasal Cannula Oxygen Flow Rate 3 02/22/24 08:00 02/22/24 08:00 02/22/24 10:59 Temperature 97.1 F L 97 F L Pulse Rate 72 70 Respiratory Rate 16 14 Blood Pressure 110/60 101/66 Pulse Oximetry 99 97 Oxygen Delivery Room Air Room Air Oxygen Flow Rate 02/22/24 08:00 Temperature Pulse Rate 75 Respiratory Rate Blood Pressure Pulse Oximetry Oxygen Delivery Oxygen Flow Rate Intake/Output Intake/Output: Intake & Output 02/19/24 02/20/24 02/21/24 02/22/24 23:59 23:59 23:59 23:59 Intake Total 2560 2710 2590 Output Total 150 6 Balance 2410 2710 2584 Meds/Results Medications: Active Medications Generic Name Dose Route Start Last Admin Trade Name Freq PRN Reason Stop Dose Admin Acetaminophen 650 mg 02/19/24 21:10 Acetaminophen 325 Mg Tablet PO Q4H PRN Mild Pain (1-3) or Fever Allopurinol 100 mg 02/21/24 09:00 02/22/24 09:23 Allopurinol 100 Mg Tablet PO Not Given DAILY DAIANA Atorvastatin Calcium 20 mg 02/20/24 18:00 02/21/24 18:16 Atorvastatin 20 Mg Tablet PO Not Given QPM DAIANA Dextrose 12.5 gm 02/20/24 06:39 02/20/24 06:45 Dextrose 50% 25 Gm/50 Ml Syringe IV PUSH 12.5 gm PRN PRN Administration Hypoglycemia Protocol Glucagon 1 mg 02/20/24 06:39 Glucagon For Inj 1 Mg Vial IM PRN PRN Hypoglycemia Protocol Glucose 15 gm 02/20/24 06:39 Glucose Oral Gel 15 Gm Of Glucse In 37.5 Gm Tube PO PRN PRN Hypoglycemia Protocol Ceftriaxone Sodium 1 gm in 50 mls @ 100 mls/hr 02/20/24 20:00 02/21/24 21:24 Rocephin 1 Gm/Ns 50 Ml IVPB Infused Q24H DAIANA Infusion Metronidazole 500 mg in 100 mls @ 100 mls/hr 02/20/24 06:00 02/22/24 05:35 Flagyl 500 Mg/Iso Soln 100 Ml IVPB 100 mls/hr Q8H DAIANA Administration Sodium Chloride 1,000 mls @ 100 mls/hr 02/19/24 21:10 02/22/24 01:00 Normal Saline Iv IV CONT 100 mls/hr .Q10H DAIANA Administration Dextrose 1,000 mls @ 100 mls/hr 02/20/24 06:39 Dextrose 5% 1,000 Ml IVPB PRN PRN Hypoglycemia Protocol Lactated Ringer's 1,000 mls @ 150 mls/hr 02/22/24 10:55 02/22/24 11:04 Lr - Lactated Ringers Iv IV CONT 150 mls/hr .Q6H40M DAIANA Administration Metoprolol Succinate 12.5 mg 02/21/24 09:00 02/22/24 09:23 Metoprolol Succinate Ext Rel 12.5 Mg Tabcr PO Not Given DAILY DAIANA Mirtazapine 30 mg 02/20/24 18:00 02/21/24 18:16 Mirtazapine 30 Mg Tablet PO Not Given QPM [facility] Pantoprazole Sodium 40 mg 02/21/24 09:00 02/22/24 09:20 Pantoprazole 40 Mg Tablet PO Not Given QAM [facility] Fluticasone/Salmeterol 2 puff 02/20/24 10:45 02/22/24 07:14 Fluticasone/Salmeterol 115-21 Mcg Inhaler 1 Puff INHALATION Not Given Q12HRT [facility] Radiology Results: ITS Impressions Chest X-Ray 02/19/24 15:48 IMPRESSION: No acute cardiopulmonary process. Head CT 02/19/24 16:34 IMPRESSION: No acute intracranial process. Abdomen/Pelvis CTA 02/19/24 16:49 IMPRESSION: Severe fecal impaction with findings concerning for stercoral colitis. Possible rectal mass. No source for GI bleeding identified. Labs Labs: Laboratory Results - last 24 hr 02/22/24 05:20 WBC 3.9 L RBC 3.13 L Hgb 9.8 L Hct 30.5 L MCV 97.4 MCH 31.3 MCHC 32.1 RDW 18.0 H Plt Count 89 L MPV 12.7 H Immature Gran % (Auto) 0.8 H Neut % (Auto) 77.0 H Lymph % (Auto) 14.8 L [place] % (Auto) 5.1 Eos % (Auto) 1.8 Baso % (Auto) 0.5 Lymph # (Auto) 0.58 L [place] # (Auto) 0.2 Eos # (Auto) 0.1 Baso # (Auto) 0.0 Abs Immat Gran (auto) 0.03 Absolute Neuts (auto) 3.0 Absolute Nucleated RBC 0.000 Nucleated RBC % 0.0 Sodium 138 Potassium 3.3 L Chloride 116 H Carbon Dioxide 18 L Anion Gap 4 BUN 15 D Creatinine 0.80 Estim Creat Clear Calc 49 Estimated GFR > 60 Glucose 70 Calcium 8.0 L Total Bilirubin 0.6 AST 18 ALT 7 Alkaline Phosphatase 58 Total Protein 4.0 L Albumin 2.3 L
--- NOTE | 2024-02-22 11:52 | P.PNIM_ITS ---
Progress Note: A&P Assessment and Plan (1) Melena: Code(s): K92.1 - Melena Status: Acute Assessment and Plan: * Reporting dark stools on Eliquis for AFib * Hemoglobin stable * Continue to trend * Transfuse as needed for hemoglobin less than 7.0 * Hemoglobin stable at 9.8 * EGD today was essentially normal * Unable to do colonoscopy due to patient non adherence to bowel prep (2) Rectal mass: Code(s): K62.89 - Other specified diseases of anus and rectum Status: Acute Assessment and Plan: * GI consulted and following * Consult placed to Heme/Onc * CT of abdomen and pelvis showing severe fecal impaction with findings concerning for sterile coral colitis, possible rectal mass. * EGD today was essentially normal * Unable to do colonoscopy due to patient non adherence to bowel prep (3) Anemia, normocytic normochromic: Code(s): D64.9 - Anemia, unspecified Status: Acute Assessment and Plan: * GI consulted * Hgb 9.8 today * Continue to trend * Transfuse for Hgb < 7.0 (4) Hyperlipidemia: Code(s): E78.5 - Hyperlipidemia, unspecified Status: Acute Assessment and Plan: * continue Atorvastatin (5) Stercoral colitis: Code(s): K52.89 - Other specified noninfective gastroenteritis and colitis Status: Acute Assessment and Plan: * Continue Flagyl and Cefdinir for colitis * Will order KUB today (6) Pancytopenia: Code(s): D61.818 - Other pancytopenia Status: Acute Assessment and Plan: * White blood cell count 3.9, RBC 3.13, platelet count 89 * continue to trend * likely secondary to stercoral colitis, rectal mass??? * Hematology/oncology consulted for pancytopenia * Will check anemia panel Time Spent With Patient Time with patient: 25 - 35 minutes Subjective Date/time seen: 02/22/24 11:52 Interval history: Interval history: This is a 73 year old female who presented to the hospital yesterday with melena stools, abdominal pain, fatigue, and weight loss. Work up in the hospital included a chest x-ray that was negative for any acute findings. Head CT was also negative for any acute findings. Abdomen/Pelvis CTA revealed severe fecal impaction with findings concerning for stercoral colitis, possible rectal mass. the rectum was noted to be dilated to 10.7cm with surrounding wall thickening and inflammatory changes. Initial Labs shown a normal WBC of 4.6, Hgb 11.1, INR 2.1, creatinine 1.50, eGFR 34, lactic acid normal at 1.2, proBNP 1560, negative troponin, Lipase low at 19, TSH normal at 4.380. UA was obtained and shown a urine specific gravity of 1.037, trace ketones, otherwise unremarkable. EKG showing atrial paced rhythm with a rate of 78, QTc 531. Patient was given IVF, Protonix, Rocephin, Flagyl, Miralax and Dulcolax while in the ER. GI was consulted. Subjective: No new complaints today. Labs reviewed. Review of Systems Review of Systems: All systems reviewed & are unremarkable except as noted in HPI and below Constitutional: Constitutional: Reports as per HPI and Reports no additional constitutional complaints Eyes: Eyes: Reports as per HPI and Reports no additional eye complaints ENT: Reports system reviewed and no additional complaints, except as documented and Reports as per HPI Cardiovascular: Cardiovascular: Reports as per HPI and Reports no additional cardiovascular complaints Respiratory: Respiratory: Reports as per HPI and Reports no additional respiratory complaints Gastrointestinal: Gastrointestinal: Reports as per HPI and Reports no additional gastrointestinal complaints Genitourinary: Genitourinary: Reports no additional female genitourinary complaints and Reports as per HPI Musculoskeletal: Musculoskeletal: Reports no additional musculoskeletal complaints and Reports as per HPI Integumentary/Breasts: Skin/Breast: Reports system reviewed and no additional complaints, except as docu and Reports as per HPI Neurologic: Reports system reviewed and no additional complaints, except as documented and Reports as per HPI Psychiatric: Psychiatric: Reports no additional psychiatric complaints and Reports as per HPI Exam Narrative: General: In no acute distress, well nourished Cardiac: Normal S1 and S2. No murmur, gallops or friction rubs, peripheral pulses intact. Respiratory: Lungs clear to auscultation, no adventitious lung sounds, currently on room air Gastrointestinal: soft, non-distended, non-tender, normoactive bowel sounds. : voiding without difficulty. Neuro: Alert and oriented x3 Psych: Rambling speech, anxious,suspicious demeanor Objective Data Vital Signs Vital Signs: Vital Signs - 24 hr 02/21/24 13:30 02/21/24 12:00 02/21/24 16:00 Temperature 98.0 F Pulse Rate 77 84 75 Respiratory Rate 18 Blood Pressure 103/67 Pulse Oximetry 96 Oxygen Delivery Oxygen Flow Rate 02/21/24 19:46 02/21/24 20:00 02/21/24 22:20 Temperature 97.0 F L Pulse Rate 75 69 Respiratory Rate 20 Blood Pressure 107/45 L Pulse Oximetry 96 100 Oxygen Delivery Nasal Cannula Oxygen Flow Rate 3 02/22/24 00:00 02/22/24 01:33 02/22/24 04:00 Temperature 97.0 F L Pulse Rate 75 70 89 Respiratory Rate 20 Blood Pressure 118/61 Pulse Oximetry 99 Oxygen Delivery Oxygen Flow Rate 02/22/24 05:59 02/22/24 07:15 02/22/24 09:23 Temperature 97.1 F L Pulse Rate 79 76 Respiratory Rate 20 Blood Pressure 100/56 L Pulse Oximetry 100 99 Oxygen Delivery Nasal Cannula Oxygen Flow Rate 3 02/22/24 08:00 02/22/24 08:00 02/22/24 10:59 Temperature 97.1 F L 97 F L Pulse Rate 72 70 Respiratory Rate 16 14 Blood Pressure 110/60 101/66 Pulse Oximetry 99 97 Oxygen Delivery Room Air Room Air Oxygen Flow Rate 02/22/24 08:00 Temperature Pulse Rate 75 Respiratory Rate Blood Pressure Pulse Oximetry Oxygen Delivery Oxygen Flow Rate Intake/Output Intake/Output: Intake & Output 02/19/24 02/20/24 02/21/24 02/22/24 23:59 23:59 23:59 23:59 Intake Total 2560 2710 2590 Output Total 150 6 Balance 2410 2710 2584 Meds/Results Medications: Active Medications Generic Name Dose Route Start Last Admin Trade Name Freq PRN Reason Stop Dose Admin Acetaminophen 650 mg 02/19/24 21:10 Acetaminophen 325 Mg Tablet PO Q4H PRN Mild Pain (1-3) or Fever Allopurinol 100 mg 02/21/24 09:00 02/22/24 09:23 Allopurinol 100 Mg Tablet PO Not Given DAILY DAIANA Atorvastatin Calcium 20 mg 02/20/24 18:00 02/21/24 18:16 Atorvastatin 20 Mg Tablet PO Not Given QPM DAIANA Dextrose 12.5 gm 02/20/24 06:39 02/20/24 06:45 Dextrose 50% 25 Gm/50 Ml Syringe IV PUSH 12.5 gm PRN PRN Administration Hypoglycemia Protocol Glucagon 1 mg 02/20/24 06:39 Glucagon For Inj 1 Mg Vial IM PRN PRN Hypoglycemia Protocol Glucose 15 gm 02/20/24 06:39 Glucose Oral Gel 15 Gm Of Glucse In 37.5 Gm Tube PO PRN PRN Hypoglycemia Protocol Ceftriaxone Sodium 1 gm in 50 mls @ 100 mls/hr 02/20/24 20:00 02/21/24 21:24 Rocephin 1 Gm/Ns 50 Ml IVPB Infused Q24H DAIANA Infusion Metronidazole 500 mg in 100 mls @ 100 mls/hr 02/20/24 06:00 02/22/24 05:35 Flagyl 500 Mg/Iso Soln 100 Ml IVPB 100 mls/hr Q8H DAIANA Administration Sodium Chloride 1,000 mls @ 100 mls/hr 02/19/24 21:10 02/22/24 01:00 Normal Saline Iv IV CONT 100 mls/hr .Q10H DAIANA Administration Dextrose 1,000 mls @ 100 mls/hr 02/20/24 06:39 Dextrose 5% 1,000 Ml IVPB PRN PRN Hypoglycemia Protocol Lactated Ringer's 1,000 mls @ 150 mls/hr 02/22/24 10:55 02/22/24 11:04 Lr - Lactated Ringers Iv IV CONT 150 mls/hr .Q6H40M DAIANA Administration Metoprolol Succinate 12.5 mg 02/21/24 09:00 02/22/24 09:23 Metoprolol Succinate Ext Rel 12.5 Mg Tabcr PO Not Given DAILY DAIANA Mirtazapine 30 mg 02/20/24 18:00 02/21/24 18:16 Mirtazapine 30 Mg Tablet PO Not Given QPM DAIANA Pantoprazole Sodium 40 mg 02/21/24 09:00 02/22/24 09:20 Pantoprazole 40 Mg Tablet PO Not Given QAM DAIANA Fluticasone/Salmeterol 2 puff 02/20/24 10:45 02/22/24 07:14 Fluticasone/Salmeterol 115-21 Mcg Inhaler 1 Puff INHALATION Not Given Q12HRT [facility] Radiology Results: ITS Impressions Chest X-Ray 02/19/24 15:48 IMPRESSION: No acute cardiopulmonary process. Head CT 02/19/24 16:34 IMPRESSION: No acute intracranial process. Abdomen/Pelvis CTA 02/19/24 16:49 IMPRESSION: Severe fecal impaction with findings concerning for stercoral colitis. Possible rectal mass. No source for GI bleeding identified. Labs Labs: Laboratory Results - last 24 hr 02/22/24 05:20 WBC 3.9 L RBC 3.13 L Hgb 9.8 L Hct 30.5 L MCV 97.4 MCH 31.3 MCHC 32.1 RDW 18.0 H Plt Count 89 L MPV 12.7 H Immature Gran % (Auto) 0.8 H Neut % (Auto) 77.0 H Lymph % (Auto) 14.8 L [place] % (Auto) 5.1 Eos % (Auto) 1.8 Baso % (Auto) 0.5 Lymph # (Auto) 0.58 L [place] # (Auto) 0.2 Eos # (Auto) 0.1 Baso # (Auto) 0.0 Abs Immat Gran (auto) 0.03 Absolute Neuts (auto) 3.0 Absolute Nucleated RBC 0.000 Nucleated RBC % 0.0 Sodium 138 Potassium 3.3 L Chloride 116 H Carbon Dioxide 18 L Anion Gap 4 BUN 15 D Creatinine 0.80 Estim Creat Clear Calc 49 Estimated GFR > 60 Glucose 70 Calcium 8.0 L Total Bilirubin 0.6 AST 18 ALT 7 Alkaline Phosphatase 58 Total Protein 4.0 L Albumin 2.3 L Quality VTE Prophylaxis VTE prophylaxis: mechanical ordered
--- NOTE | 2024-02-22 14:08 | PC.NURSE ---
Pt refusing potassium and pantoprazole. Hospitalist made aware.
[2024-02-22 15:32] LABS: Immature Reticulocyte Fraction 24.8 % (3.0-15.9); Reticulocyte Hemoglobin Conten 34.6 pg (28.2-36.6); Reticulocyte Percent 2.37 % (0.7-4.3); Reticulocytes Absolute 0.08 10^6/uL (0.02-0.10)
[2024-02-22] MEDS: MIRTAZAPINE 30 MG TABLET PO (17:58)
[2024-02-22] MEDS: FERROUS SULFATE 325 MG TABLET DR BY MOUTH (17:58)
[2024-02-22] MEDS: ATORVASTATIN 20 MG TABLET PO (17:58)
[2024-02-22] MEDS: APIXABAN 5 MG TABLET PO (17:58)
[2024-02-22 19:46] LABS: Iron 48 ug/dL (37-170)
[2024-02-22 19:57] LABS: Percent Iron Saturation 25 % (20-50)
[2024-02-22 20:05] LABS: Lactate Dehydrogenase 162 U/L (120-246)
[2024-02-22 21:10] LABS: Folic Acid 2.9 ng/mL (2.76->20)
[2024-02-22] MEDS: metroNIDAZOLE 500 MG TABLET PO (21:30)
[2024-02-22] MEDS: CEFDINIR 300 MG CAPSULE PO (21:30)
[2024-02-23] VITALS (10 sets, daily range): BP systolic 106–118; BP diastolic 61–73; PULSE 69–82; RESP 18; TEMP 36.2–36.4; O2SAT 94–100
[2024-02-23] MEDS: SODIUM CHLORIDE 0.9% IV 1,000 ML 100 ML IV CONT (04:20)
[2024-02-23 07:05] LABS: Basophils Percent Auto 0.9 % (0.2-1.2); Eosinophils Absolute Auto 0.1 K/mm3 (0-0.3); Eosinophils Percent Auto 2.6 % (0-4.4); Hematocrit 30.7 % (37.0-47.0); Hemoglobin 9.9 g/dL (12.0-15.0); Immature Granulocyte Absolute 0.02 K/mm3 (0.00-0.031); Immature Granulocyte Percent A 0.6 % (0-0.5); Immature Platelet Fraction Pct 5.1 % (0.9-11.2); Mean Corpuscular HGB Conc 32.2 g/dl (32-36); Mean Corpuscular Hemoglobin 31.5 pg (26-34); Mean Corpuscular Volume 97.8 fl (80-100); Mean Platelet Volume 12.6 fl (7.4-10.4); Monocytes Absolute Auto 0.2 K/mm3 (0.1-0.6); Monocytes Percent Auto 6.9 % (2.6-8.5); Neutrophils Absolute Auto 2.2 K/mm3 (1.3-6.7); Platelet Count Result 81 k/mm3 (150-375); Red Blood Count 3.14 M/mm3 (4.2-5.4); Red Cell Distribution Width 18.1 % (11.5-14.5); White Blood Count 3.5 K/mm3 (4.5-10.0)
[2024-02-23 07:38] LABS: Alanine Aminotransferase 7 U/L (6-35); Albumin Level 2.2 g/dL (3.5-5.1); Alkaline Phosphatase 62 U/L (38-126); Anion Gap 2 mmol/L (4-12); Aspartate Amino Transferase 18 U/L (14-36); Bilirubin,Total 0.7 mg/dL (0.2-1.3); Blood Urea Nitrogen 10 mg/dL (7-17); Calcium 7.7 mg/dL (8.4-10.2); Carbon Dioxide 19 mmol/L (22-30); Chloride 116 mmol/L (98-107); Estimated CRCL calculation 49 ml/min; Estimated Glomerular Filt Rate > 60; Glucose 60 mg/dL (65-110); Potassium 3.4 mmol/L (3.4-5.0); Sodium 137 mmol/L (137-145)
[2024-02-23] MEDS: DEXTROSE 50% 25 GM/50 ML SYRINGE IV PUSH (07:56)
[2024-02-23 08:33] LABS: Glucose Point of Care 101 mg/dl (65-105)
[2024-02-23] MEDS: FERROUS SULFATE 325 MG TABLET DR BY MOUTH ×2 (09:04→18:43)
[2024-02-23] MEDS: metroNIDAZOLE 500 MG TABLET PO ×3 (09:04→22:14)
[2024-02-23] MEDS: allopurinoL 100 MG TABLET PO (09:04)
[2024-02-23] MEDS: PANTOPRAZOLE 40 MG TABLET PO (09:04)
[2024-02-23] MEDS: APIXABAN 5 MG TABLET PO ×2 (09:04→18:43)
[2024-02-23] MEDS: CEFDINIR 300 MG CAPSULE PO ×2 (09:04→22:14)
[2024-02-23] MEDS: METOPROLOL SUCCINATE EXT REL 12.5 MG TABCR PO (09:06)
--- NOTE | 2024-02-23 10:29 | PCNFU ---
Nutrition Follow-Up Complete: Inadequate oral intake related to chronic loss of appetite as evidenced by report of poor appetite, weight loss and early satiety Goal:Optimize PO intake when diet is advanced Pt progressing towards goal Pt current nutrition is Regular, ensure compact BID. Nutrition recommendation: d/c ensure per pt preference Last recorded weight is 57.1 kg. Bowel Motility: +BM 02/22 Labs Reviewed: Hgb:9.9, HCT:30.7, Glu:60 Meds Noted: Eliquis, remeron, protonix Skin: WNL Additional Notes: Pt advanced to a regular diet, intake 25% at this time. Pt does not want the Ensure, does not want any other supplements either - offered ice cream and bars. Encouraged po intake. Monitoring diet orders, weights, labs, intakes, plan of care Follow up in 5 days
--- NOTE | 2024-02-23 12:45 | P.PNIM_ITS ---
Progress Note: A&P Assessment and Plan (1) Hyperlipidemia: Code(s): E78.5 - Hyperlipidemia, unspecified Status: Acute (2) Pancytopenia: Code(s): D61.818 - Other pancytopenia Status: Acute (3) Abnormal digestive system diagnostic imaging: Code(s): R93.3 - Abnormal findings on diagnostic imaging of other parts of digestive tract Status: Acute (4) Stercoral colitis: Code(s): K52.89 - Other specified noninfective gastroenteritis and colitis Status: Acute (5) Melena: Code(s): K92.1 - Melena Status: Acute (6) Rectal mass: Code(s): K62.89 - Other specified diseases of anus and rectum Status: Acute (7) Fecal impaction: Code(s): K56.41 - Fecal impaction Status: Acute Plan 73F with a mHx significant for CAD s/p CABG, A-fib s/p PPM, Mitral valve repair, chronic anticoagulation, was brought in by her daughter in-law after experiencing multiple episodes of dark loose stools; worse with meals and drinks; associated with lower abdominal pains, fatigue, anorexia, unstable gait and weight loss over prior months.CT of abdomen and pelvis showing severe fecal impaction with findings concerning for sterile coral colitis, possible rectal mass. GI was consulted. EGD was essentially unremarkable. Colonoscopy was not done as patient was not adherent to bowel prep. 1. Acute GI bleed: Melena Which has stopped H&H stable EGD was unremarkable Unable to perform colonoscopy due to patient's non adherence to bowel preparation GI has signed off Continue with PPI Supplement potassium Iron panel is unremarkable 2. Stercoral colitis+? Rectal mass+ fecal impaction: Patient is having bowel movements now likely fecal impaction has resolved Further workup regarding possible rectal mass cannot be done as patient is not adherent to bowel prep Continue with Flagyl and Omnicef for stercoral colitis 3.Pancytopenia: Hematology has been consulted Awaiting input 4. Hyperglycemia: Incidental finding was treated appropriately Patient is encouraged to have more p.o. intake 5. History of AFib: Continue with metoprolol, Eliquis Supplement potassium 6. DVT prophylaxis: On Eliquis 7. Code status: Full 8. Disposition: Pending placement Time Spent With Patient Time with patient: 15 - 25 minutes Subjective Date/time seen: 02/23/24 12:45 Interval history: Hypoglycemia overnight, incidental finding Poor p.o. intake Review of Systems Review of Systems: All systems reviewed & are unremarkable except as noted in HPI and below Exam Narrative: General: In no acute distress, well nourished Cardiac: Normal S1 and S2. No murmur, gallops or friction rubs, peripheral pulses intact. Respiratory: Lungs clear to auscultation, no adventitious lung sounds, currently on room air Gastrointestinal: soft, non-distended, non-tender, normoactive bowel sounds. : voiding without difficulty. Neuro: Alert and oriented x3 Psych: Rambling speech, anxious,suspicious demeanor Objective Data Vital Signs Vital Signs: Vital Signs - 24 hr 02/22/24 16:00 02/22/24 20:05 02/22/24 20:00 Temperature 97.7 F Pulse Rate 70 77 Respiratory Rate 18 Blood Pressure 99/58 L Pulse Oximetry 98 10 L Oxygen Delivery Room Air 02/22/24 20:00 02/22/24 20:00 02/23/24 00:00 Temperature Pulse Rate 74 79 Respiratory Rate Blood Pressure Pulse Oximetry Oxygen Delivery Room Air 02/23/24 04:00 02/23/24 04:00 02/23/24 09:06 Temperature 97.2 F L Pulse Rate 71 82 77 Respiratory Rate 18 Blood Pressure 116/73 Pulse Oximetry 99 Oxygen Delivery 02/23/24 08:00 02/23/24 08:00 Temperature Pulse Rate 75 Respiratory Rate Blood Pressure Pulse Oximetry Oxygen Delivery Room Air Intake/Output Intake/Output: Intake & Output 02/20/24 02/21/24 02/22/24 02/23/24 23:59 23:59 23:59 23:59 Intake Total 2710 2590 2587.5 240 Output Total 6 Balance 2710 2584 2587.5 240 Meds/Results Medications: Active Medications Generic Name Dose Route Start Last Admin Trade Name Freq PRN Reason Stop Dose Admin Acetaminophen 650 mg 02/19/24 21:10 Acetaminophen 325 Mg Tablet PO Q4H PRN Mild Pain (1-3) or Fever Allopurinol 100 mg 02/21/24 09:00 02/23/24 09:04 Allopurinol 100 Mg Tablet PO 100 mg DAILY DAIANA Administration Apixaban 5 mg 02/22/24 17:00 02/23/24 09:04 Apixaban 5 Mg Tablet PO 5 mg BID DAIANA Administration Atorvastatin Calcium 20 mg 02/20/24 18:00 02/22/24 17:58 Atorvastatin 20 Mg Tablet PO 20 mg QPM DAIANA Administration Cefdinir 300 mg 02/22/24 21:00 02/23/24 09:04 Cefdinir 300 Mg Capsule PO 300 mg Q12HR DAIANA Administration Dextrose 12.5 gm 02/20/24 06:39 02/23/24 07:56 Dextrose 50% 25 Gm/50 Ml Syringe IV PUSH 12.5 gm PRN PRN Administration Hypoglycemia Protocol Ergocalciferol 50,000 units 02/26/24 09:00 Ergocalciferol 50,000 Units Capsule PO WEEKLY DAIANA Ferrous Sulfate 325 mg 02/22/24 17:00 02/23/24 09:04 Ferrous Sulfate [address] BY MOUTH 325 mg BID DAIANA Administration Glucagon 1 mg 02/20/24 06:39 Glucagon For Inj 1 Mg Vial IM PRN PRN Hypoglycemia Protocol Glucose 15 gm 02/20/24 06:39 Glucose Oral Gel 15 Gm Of Glucse In 37.5 Gm Tube PO PRN PRN Hypoglycemia Protocol Dextrose 1,000 mls @ 100 mls/hr 02/20/24 06:39 Dextrose 5% 1,000 Ml IVPB PRN PRN Hypoglycemia Protocol Metoprolol Succinate 12.5 mg 02/21/24 09:00 02/23/24 09:06 Metoprolol Succinate Ext Rel 12.5 Mg Tabcr PO 12.5 mg DAILY DAIANA Administration Metronidazole 500 mg 02/22/24 22:00 02/23/24 09:04 Metronidazole 500 Mg Tablet PO 500 mg Q8HR DAIANA Administration Mirtazapine 30 mg 02/20/24 18:00 02/22/24 17:58 Mirtazapine 30 Mg Tablet PO 30 mg QPM DAIANA Administration Pantoprazole Sodium 40 mg 02/22/24 12:25 02/23/24 09:04 Pantoprazole 40 Mg Tablet PO 40 mg QAM DAIANA Administration Polyethylene Glycol 17 gm 02/23/24 09:00 02/23/24 10:00 Polyethylene Glycol 3350 17 Gm Powd.Pack PO Not Given QAM DAIANA Fluticasone/Salmeterol 2 puff 02/20/24 10:45 02/23/24 08:46 Fluticasone/Salmeterol 115-21 Mcg Inhaler 1 Puff INHALATION Not Given Q12HRT [facility] Radiology Results: ITS Impressions Chest X-Ray 02/19/24 15:48 IMPRESSION: No acute cardiopulmonary process. Head CT 02/19/24 16:34 IMPRESSION: No acute intracranial process. Abdomen/Pelvis CTA 02/19/24 16:49 IMPRESSION: Severe fecal impaction with findings concerning for stercoral colitis. Possible rectal mass. No source for GI bleeding identified. Abdomen X-Ray 02/22/24 15:45 IMPRESSION: 1. Stool distends the rectosigmoid. Labs Labs: Laboratory Results - last 24 hr 02/22/24 02/23/24 02/23/24 15:04 06:22 08:26 WBC 3.5 L RBC 3.14 L Hgb 9.9 L Hct 30.7 L MCV 97.8 MCH 31.5 MCHC 32.2 RDW 18.1 H Plt Count 81 L MPV 12.6 H Immature Gran % (Auto) 0.6 H Neut % (Auto) 63.0 Lymph % (Auto) 26.0 [place] % (Auto) 6.9 Eos % (Auto) 2.6 Baso % (Auto) 0.9 Lymph # (Auto) 0.90 [place] # (Auto) 0.2 Eos # (Auto) 0.1 Baso # (Auto) 0.0 Abs Immat Gran (auto) 0.02 Absolute Neuts (auto) 2.2 Absolute Nucleated RBC 0.000 Nucleated RBC % 0.0 % Immature Plt Fraction 5.1 Absolute Retic 0.08 Percent Retic 2.37 Immature Retic Fraction 24.8 H Retic Hgb Content 34.6 Sodium 137 Potassium 3.4 Chloride 116 H Carbon Dioxide 19 L Anion Gap 2 L BUN 10 D Creatinine 0.80 Estim Creat Clear Calc 49 Estimated GFR > 60 Glucose 60 L POC Capillary Glucose 101 Calcium 7.7 L Iron 48 TIBC 193 L % Saturation 25 Ferritin 128.00 Total Bilirubin 0.7 AST 18 ALT 7 Alkaline Phosphatase 62 Lactate Dehydrogenase 162 Total Protein 4.0 L Albumin 2.2 L Vitamin B12 534.0 Folate 2.9 TSH (Reflex) 3.530
[2024-02-23] MEDS: POTASSIUM CHLORIDE 20 MEQ PACKET (FOR LIQUID) 40 MEQ PO (13:13)
[2024-02-23 13:23] LABS: Haptoglobin 89 mg/dL (43-212)
--- NOTE | 2024-02-23 13:47 | WPDANESPN ---
Anes - Prog Note Post-Op Date/Time: 02/23/24 13:47 Cardiovascular status: normal Respiratory status: normal Airway patency: baseline Mental status: baseline Post-Op hydration status: normal Vital Signs: Last Vital Signs Temp 36.2 C L 02/23/24 04:00 Pulse 77 02/23/24 09:06 Resp 18 02/23/24 04:00 BP 116/73 02/23/24 04:00 Pulse Ox 99 02/23/24 04:00 O2 Del Method Room Air 02/23/24 08:00 O2 Flow Rate 3 02/22/24 07:15 FiO2 21 02/21/24 08:00 Pain Score (VAS): 0 I/O: Intake & Output 02/22/24 02/23/24 02/23/24 23:59 07:59 15:59 Intake Total 1255 120 120 Balance 1255 120 120 Laboratory Tests 02/23/24 06:22 02/23/24 06:22 02/22/24 02/23/24 02/23/24 15:04 06:22 08:26 WBC 3.5 L RBC 3.14 L Hgb 9.9 L Hct 30.7 L MCV 97.8 MCH 31.5 MCHC 32.2 RDW 18.1 H Plt Count 81 L MPV 12.6 H Immature Gran % (Auto) 0.6 H Neut % (Auto) 63.0 Lymph % (Auto) 26.0 [place] % (Auto) 6.9 Eos % (Auto) 2.6 Baso % (Auto) 0.9 Lymph # (Auto) 0.90 [place] # (Auto) 0.2 Eos # (Auto) 0.1 Baso # (Auto) 0.0 Abs Immat Gran (auto) 0.02 Absolute Neuts (auto) 2.2 Absolute Nucleated RBC 0.000 Nucleated RBC % 0.0 % Immature Plt Fraction 5.1 Absolute Retic 0.08 Percent Retic 2.37 Immature Retic Fraction 24.8 H Retic Hgb Content 34.6 Haptoglobin 89 Sodium 137 Potassium 3.4 Chloride 116 H Carbon Dioxide 19 L Anion Gap 2 L BUN 10 D Creatinine 0.80 Estim Creat Clear Calc 49 Estimated GFR > 60 Glucose 60 L POC Capillary Glucose 101 Calcium 7.7 L Iron 48 TIBC 193 L % Saturation 25 Ferritin 128.00 Total Bilirubin 0.7 AST 18 ALT 7 Alkaline Phosphatase 62 Lactate Dehydrogenase 162 Total Protein Pending 4.0 L Albumin Pending 2.2 L [id number] Pending [id number] Pending [id number] Pending [id number] Pending Gamma Globulins Pending Abnorm Protein Band 1 Pending Abnorm Protein Band 3 Pending PEP Interpretation Pending Vitamin B12 534.0 Folate 2.9 TSH (Reflex) 3.530 Post-procedural complaints: none Patient Feedback: Patient satisfied with anesthetic care.
[2024-02-23] MEDS: ATORVASTATIN 20 MG TABLET PO (18:43)
[2024-02-23] MEDS: MIRTAZAPINE 30 MG TABLET PO (18:43)
--- NOTE | 2024-02-23 18:45 | P.CONONC_ITS ---
HPI - Date of Consult Date/Time: 02/23/24 18:45 Requesting Physician: Lesvia Donohue APRN Primary Care Provider: REGISTERED NURSE RENAL PHYSICIAN - Consult Narrative Reason for consult: Pancytopenia Narrative: Magy Heredia is a 73 year old female with history of coronary artery disease status post coronary artery bypass grafting, atrial fibrillation and mitral valve repair on chronic anticoagulation with Eliquis brought into the hospital with multiple loose and dark stool associated with lower abdominal pain, tiredness and fatigue. Labs showed hemoglobin of 11. For reason not clear to me she was given 1 unit of packed red blood cell. Other labs showed WBC count of 3.4 and platelet count of 81 patient denies any history of bone marrow disorder and liver and spleen disorder. Patient last colonoscopy was in 2021 showed diverticulitis and proctitis. CT scan abdomen and pelvis showed possible rectal mass with severe fecal impaction concerning for colitis. EGD was performed on February 21 showed normal findings. Colonoscopy was not performed S patient is not willing to go for preparation. Review of Systems - Review of Systems All systems reviewed & are unremarkable except as noted in HPI and bel - Neurologic Reports system reviewed and no additional complaints, except as documented, Reports hearing normal, Reports abnormal gait, Denies abnormal speech, Denies behavioral changes, Denies confusion, Denies vertigo, Denies headache(s) [facility] Medical History: Medical History (Last Reviewed 02/22/24 @ 11:00 by Richard Recinos MD) Atrial fibrillation Coronary artery disease CVA (cerebral vascular accident) Hyperlipidemia Pacemaker Surgical History: Surgical History (Last Reviewed 02/22/24 @ 11:00 by Richard Recinos MD) H/O mitral valve replacement Bovine Hx of CABG Family History: Family History (Last Reviewed 02/22/24 @ 11:00 by Richard Recinos MD) Other Acute myocardial infarction - Social History Social History: Social History (Last Reviewed 02/22/24 @ 11:00 by Richard Recinos MD) Substance Use: Substance use type: does not use Others: Spiritual care concerns: No Smoking Status: Smoking status: Former smoker Approximate Smoking End Date: 2013 Social Determinants of Health: Do You Feel Safe in your Home?: Yes Has the Lack of Transportation Kept You From Medical Appointments or From Getting Medications?: No Within the Past 12 Months, Were You Worried Whether Your Food Would Run Out Before You Got Money to Buy More?: Never True What is Your Housing Situation Today?: I Have Housing Are You Worried That in the Next 2 Months, You May Not Have Your Own Housing to Live In?: No Do You Have Trouble Paying Your Heating Or Electricity Bill?: No Do You Have Trouble Paying For Medicines?: No Are You Currently Unemployed and Looking for Work?: No Highest Level of Education Completed: High School Diploma/GED Do You Have Trouble With Childcare or the Care of a Family Member?: No Exam - Vital Signs Vital Signs - 24 hr 02/22/24 20:05 02/22/24 20:00 02/22/24 20:00 Temperature 36.5 C Pulse Rate 77 Respiratory Rate 18 Blood Pressure 99/58 L Pulse Oximetry 98 10 L Oxygen Delivery Room Air Room Air 02/22/24 20:00 02/23/24 00:00 02/23/24 04:00 Temperature Pulse Rate 74 79 71 Respiratory Rate Blood Pressure Pulse Oximetry Oxygen Delivery 02/23/24 04:00 02/23/24 09:06 02/23/24 08:00 Temperature 36.2 C L Pulse Rate 82 77 Respiratory Rate 18 Blood Pressure 116/73 Pulse Oximetry 99 Oxygen Delivery Room Air 02/23/24 08:00 02/23/24 12:00 02/23/24 14:00 Temperature 36.2 C L Pulse Rate 75 74 74 Respiratory Rate 18 Blood Pressure 118/61 Pulse Oximetry 97 Oxygen Delivery 02/23/24 16:00 Temperature Pulse Rate 74 Respiratory Rate Blood Pressure Pulse Oximetry Oxygen Delivery - Exam HEENT: EOMI, PERRLA, mucous membranes moist and pink Neck: supple Lungs: clear to auscultation, normal air movement Heart: no murmurs, gallops, or rubs, regular rhythm, regular rate Abdomen: abdomen soft, non-distended, normal bowel sounds Extremities: normal pulses Integumentary: no abnormalities Neurological: normal speech Psychological: mental status NL, mood NL - Lab Results Laboratory Last Values WBC 3.5 K/mm3 (4.5-10.0) L 02/23/24 06:22 RBC 3.14 M/mm3 (4.2-5.4) L 02/23/24 06:22 Hgb 9.9 g/dL (12.0-15.0) L 02/23/24 06:22 Hct 30.7 % (37.0-47.0) L 02/23/24 06:22 MCV 97.8 fl (80-100) 02/23/24 06:22 MCH 31.5 pg (26-34) 02/23/24 06:22 MCHC 32.2 g/dl (32-36) 02/23/24 06:22 RDW 18.1 % (11.5-14.5) H 02/23/24 06:22 Plt Count 81 k/mm3 (150-375) L 02/23/24 06:22 MPV 12.6 fl (7.4-10.4) H 02/23/24 06:22 Immature Gran % (Auto) 0.6 % (0-0.5) H 02/23/24 06:22 Neut % (Auto) 63.0 % (45.5-73.1) 02/23/24 06:22 Lymph % (Auto) 26.0 % (18.3-44.2) 02/23/24 06:22 [place] % (Auto) 6.9 % (2.6-8.5) 02/23/24 06:22 Eos % (Auto) 2.6 % (0-4.4) 02/23/24 06:22 Baso % (Auto) 0.9 % (0.2-1.2) 02/23/24 06:22 Lymph # (Auto) 0.90 K/mm3 (0.9-3.2) 02/23/24 06:22 [place] # (Auto) 0.2 K/mm3 (0.1-0.6) 02/23/24 06:22 Eos # (Auto) 0.1 K/mm3 (0-0.3) 02/23/24 06:22 Baso # (Auto) 0.0 K/mm3 (0.0-0.1) 02/23/24 06:22 Abs Immat Gran (auto) 0.02 K/mm3 (0.00-0.031) 02/23/24 06:22 Absolute Neuts (auto) 2.2 K/mm3 (1.3-6.7) 02/23/24 06:22 Absolute Nucleated RBC 0.000 K/mm3 (0.0-0.012) 02/23/24 06:22 Nucleated RBC % 0.0 % (0.0-0.2) 02/23/24 06:22 % Immature Plt Fraction 5.1 % (0.9-11.2) 02/23/24 06:22 Absolute Retic 0.08 10^6/uL (0.02-0.10) 02/22/24 15:04 Percent Retic 2.37 % (0.7-4.3) 02/22/24 15:04 Immature Retic Fraction 24.8 % (3.0-15.9) H 02/22/24 15:04 Retic Hgb Content 34.6 pg (28.2-36.6) 02/22/24 15:04 Haptoglobin 89 mg/dL (43-212) 02/22/24 15:04 PT 24.2 Seconds (11.1-14.7) H 02/19/24 15:46 INR 2.1 02/19/24 15:46 APTT 38.1 Seconds (22.3-36.8) H 02/19/24 15:46 Sodium 137 mmol/L (137-145) 02/23/24 06:22 Potassium 3.4 mmol/L (3.4-5.0) 02/23/24 06:22 Chloride 116 mmol/L (98-107) H 02/23/24 06:22 Carbon Dioxide 19 mmol/L (22-30) L 02/23/24 06:22 Anion Gap 2 mmol/L (4-12) L 02/23/24 06:22 BUN 10 mg/dL (7-17) D 02/23/24 06:22 Creatinine 0.80 mg/dL (0.7-1.0) 02/23/24 06:22 Estim Creat Clear Calc 49 ml/min 02/23/24 06:22 Estimated GFR > 60 (59-) 02/23/24 06:22 Glucose 60 mg/dL (65-110) L 02/23/24 06:22 POC Capillary Glucose 101 mg/dl (65-105) 02/23/24 08:26 Lactic Acid 1.2 mmol/L (0.7-2.0) 02/19/24 16:45 Calcium 7.7 mg/dL (8.4-10.2) L 02/23/24 06:22 Magnesium 2.2 mg/dL (1.6-2.3) 02/19/24 15:46 Iron 48 ug/dL (37-170) 02/22/24 15:04 TIBC 193 ug/dL (261-462) L 02/22/24 15:04 % Saturation 25 % (20-50) 02/22/24 15:04 Ferritin 128.00 ng/mL (11.1-264) 02/22/24 15:04 Total Bilirubin 0.7 mg/dL (0.2-1.3) 02/23/24 06:22 AST 18 U/L (14-36) 02/23/24 06:22 ALT 7 U/L (6-35) 02/23/24 06:22 Alkaline Phosphatase 62 U/L (38-126) 02/23/24 06:22 Lactate Dehydrogenase 162 U/L (120-246) 02/22/24 15:04 Total Creatine Kinase 104 U/L (30-135) 02/19/24 15:46 Troponin I < 0.012 ng/mL (0.000-0.034) 02/19/24 15:46 NT-Pro-B Natriuret Pep 1560 pg/mL (19.9-100) H 02/19/24 15:45 Total Protein 4.0 g/dL (6.3-8.2) L 02/23/24 06:22 Albumin 2.2 g/dL (3.5-5.1) L 02/23/24 06:22 Lipase 19 U/L (23-300) L 02/19/24 15:46 Vitamin B12 534.0 pg/mL (239-931) 02/22/24 15:04 Folate 2.9 ng/mL (2.76->20) 02/22/24 15:04 TSH 4.380 uIU/mL (0.465-4.680) 02/19/24 15:46 TSH (Reflex) 3.530 uIU/mL (0.465-4.68) 02/22/24 15:04 Urine Color Yellow (Yellow) 02/19/24 17:26 Urine Appearance Clear (Clear) 02/19/24 17:26 Urine pH 5.0 (5.0-9.0) 02/19/24 17:26 Ur Specific [place] 1.037 (1.001-1.035) H 02/19/24 17:26 Urine Protein Negative mg/dL (Negative) 02/19/24 17:26 Urine Glucose (UA) Negative mg/dL (Negative) 02/19/24 17:26 Urine Ketones Trace mg/dL (Negative) H 02/19/24 17:26 Ur Blood (Man) Negative (Negative) 02/19/24 17:26 Urine Nitrate Negative (Negative) 02/19/24 17:26 Urine Bilirubin Negative (Negative) 02/19/24 17:26 Urine Urobilinogen 1.0 mg/dL (<2.0) 02/19/24 17:26 Leukocyte Esterase Rfl Negative MAHESH/UL (Negative) 02/19/24 17:26 Blood Type O Positive 02/19/24 15:45 Antibody Screen Negative 02/19/24 15:45 Crossmatch See Detail 02/19/24 15:45 Meds Home Medications Medication Instructions Recorded Confirmed Type albuterol sulfate 90 mcg/actuation 1 - 2 puff inhalation Q6H PRN 02/19/24 02/19/24 History aerosol inhaler sob/wheezing allopurinol 100 mg tablet 100 mg PO DAILY 02/19/24 02/19/24 History apixaban 5 mg tablet (Eliquis) 5 mg PO BID 02/19/24 02/19/24 History atorvastatin 20 mg tablet 20 mg PO QPM 02/19/24 02/19/24 History cholecalciferol (vitamin D3) 1,250 1,250 mcg PO WEEKLY 02/19/24 02/19/24 History mcg (50,000 unit) capsule ferrous sulfate 325 mg (65 mg 325 mg PO BID 02/19/24 02/19/24 History iron) tablet fluticasone propionate 115 2 puff inhalation Q12H 02/19/24 02/19/24 History mcg-salmeterol 21 mcg/actuation HFA inhaler metoprolol succinate 25 mg 12.5 mg PO DAILY 02/19/24 02/19/24 History tablet,extended release 24 hr mirtazapine 30 mg tablet 30 mg PO QPM 02/19/24 02/19/24 History omeprazole 20 mg capsule,delayed 20 mg PO DAILY 02/19/24 02/19/24 History release Allergies Allergy/AdvReac Type Severity Reaction Status Date / Time No Known Allergies Allergy Verified 02/19/24 12:11 Results - Labs CBC & Chem 7: 02/23/24 06:22 02/23/24 06:22 Labs: Short CBC 02/23/24 Range/Units 06:22 WBC 3.5 L (4.5-10.0) K/mm3 Hgb 9.9 L (12.0-15.0) g/dL Hct 30.7 L (37.0-47.0) % Plt Count 81 L (150-375) k/mm3 BMP 02/23/24 06:22 Sodium 137 Potassium 3.4 Chloride 116 H Carbon Dioxide 19 L BUN 10 D Creatinine 0.80 Glucose 60 L Calcium 7.7 L Liver Function 02/23/24 Range/Units 06:22 Total Bilirubin 0.7 (0.2-1.3) mg/dL AST 18 (14-36) U/L ALT 7 (6-35) U/L Alkaline Phosphatase 62 (38-126) U/L Albumin 2.2 L (3.5-5.1) g/dL Assessment and Plan - Additional Plan Pancytopenia. Patient is a 73-year-old female with history of coronary artery disease status post coronary artery bypass grafting, atrial fibrillation and mitral valve replaced min on chronic anticoagulation therapy came into the hospital with lower abdominal pain diarrhea and dark stools. Hemoglobin was 11. Patient received 1 unit of packed red blood cells for reaso ns not clear to me. Other labs showed WBC count of 3.5 and platelet 80,000. I have discussed the differential diagnosis of pancytopenia with primary bone marrow disorders like myelodysplastic syndrome, nutritional deficiencies, liver and spleen disorders and possibility of infection like colitis. Iron studies came back normal other than low TIBC. Liver enzymes were normal. Vitamin B12 was also normal. At this time I will order abdominal ultrasound. I have provided her my office information for bone marrow aspiration and biopsy that can be performed as an outpatient. At this time her hemoglobin is stable in the last 2 bowel movements showed no evidence of bleeding. She can continue Eliquis as long as the hemoglobin remains stable and no no bleeding noted. At some point she needs to have a colonoscopy done due to possible rectal mass. I will see her in the office for follow-up. I have answered all the questions the patient and the daughter satisfaction.
[2024-02-24] VITALS (10 sets, daily range): BP systolic 75–118; BP diastolic 50–80; PULSE 70–84; RESP 12–19; TEMP 36.6–36.8; O2SAT 95–100
[2024-02-24 06:00] LABS: Basophils Percent Auto 0.7 % (0.2-1.2); Eosinophils Absolute Auto 0.1 K/mm3 (0-0.3); Eosinophils Percent Auto 2.3 % (0-4.4); Hematocrit 29.7 % (37.0-47.0); Hemoglobin 9.7 g/dL (12.0-15.0); Immature Granulocyte Absolute 0.02 K/mm3 (0.00-0.031); Immature Granulocyte Percent A 0.7 % (0-0.5); Immature Platelet Fraction Pct 4.9 % (0.9-11.2); Lymphocytes Absolute Auto 0.72 K/mm3 (0.9-3.2); Lymphocytes Percent Auto 23.8 % (18.3-44.2); Mean Corpuscular HGB Conc 32.7 g/dl (32-36); Mean Corpuscular Hemoglobin 31.5 pg (26-34); Mean Corpuscular Volume 96.4 fl (80-100); Mean Platelet Volume 11.6 fl (7.4-10.4); Monocytes Absolute Auto 0.2 K/mm3 (0.1-0.6); Monocytes Percent Auto 6.6 % (2.6-8.5); Neutrophils Percent Auto 65.9 % (45.5-73.1); Platelet Count Result 83 k/mm3 (150-375); Red Blood Count 3.08 M/mm3 (4.2-5.4); Red Cell Distribution Width 18.3 % (11.5-14.5)
[2024-02-24] MEDS: metroNIDAZOLE 500 MG TABLET PO ×3 (06:19→21:48)
[2024-02-24 06:23] LABS: Anion Gap 7 mmol/L (4-12); Blood Urea Nitrogen 9 mg/dL (7-17); Calcium 8.1 mg/dL (8.4-10.2); Carbon Dioxide 18 mmol/L (22-30); Chloride 114 mmol/L (98-107); Estimated CRCL calculation 55 ml/min; Estimated Glomerular Filt Rate > 60; Glucose 67 mg/dL (65-110); Potassium 3.4 mmol/L (3.4-5.0); Sodium 139 mmol/L (137-145)
[2024-02-24 09:07] LABS: Magnesium 1.8 mg/dL (1.6-2.3)
[2024-02-24] MEDS: POTASSIUM CHLORIDE INJ 40 MEQ in SODIUM CHLORIDE 0.9% IV 500 ML 130 MEQ IVPB (10:37)
[2024-02-24] MEDS: MAGNESIUM SULF 2 GM/WATER 50ML 2 GM/50 ML BAG IVPB (10:39)
[2024-02-24] MEDS: allopurinoL 100 MG TABLET PO (10:46)
[2024-02-24] MEDS: CEFDINIR 300 MG CAPSULE PO ×2 (10:46→21:43)
[2024-02-24] MEDS: APIXABAN 5 MG TABLET PO ×2 (10:46→17:36)
[2024-02-24] MEDS: METOPROLOL SUCCINATE EXT REL 12.5 MG TABCR PO (10:46)
[2024-02-24] MEDS: PANTOPRAZOLE 40 MG TABLET PO (10:46)
[2024-02-24] MEDS: FERROUS SULFATE 325 MG TABLET DR BY MOUTH ×2 (10:46→17:36)
--- NOTE | 2024-02-24 12:42 | P.PNIM_ITS ---
Progress Note: A&P Assessment and Plan (1) Melena: Code(s): K92.1 - Melena Status: Acute (2) Stercoral colitis: Code(s): K52.89 - Other specified noninfective gastroenteritis and colitis Status: Acute (3) Pancytopenia: Code(s): D61.818 - Other pancytopenia Status: Acute (4) Hyperlipidemia: Code(s): E78.5 - Hyperlipidemia, unspecified Status: Acute (5) Abnormal digestive system diagnostic imaging: Code(s): R93.3 - Abnormal findings on diagnostic imaging of other parts of digestive tract Status: Acute (6) Rectal mass: Code(s): K62.89 - Other specified diseases of anus and rectum Status: Acute (7) Fecal impaction: Code(s): K56.41 - Fecal impaction Status: Acute (8) Atrial fibrillation: Code(s): I48.91 - Unspecified atrial fibrillation Status: Chronic Assessment and Plan: Stable, continue Eliquis Plan 73F with a mHx significant for CAD s/p CABG, A-fib s/p PPM, Mitral valve repair, chronic anticoagulation, was brought in by her daughter in-law after experi encing multiple episodes of dark loose stools; worse with meals and drinks; associated with lower abdominal pains, fatigue, anorexia, unstable gait and weight loss over prior months.CT of abdomen and pelvis showing severe fecal impaction with findings concerning for sterile coral colitis, possible rectal mass. GI was consulted. EGD was essentially unremarkable. Colonoscopy was not done as patient was not adherent to bowel prep. 1. Acute GI bleed: Melena Which has stopped H&H stable EGD was unremarkable Unable to perform colonoscopy due to patient's non adherence to bowel prep aration GI has signed off Continue with PPI Supplement potassium Iron panel is unremarkable 2. Stercoral colitis+? Rectal mass+ fecal impaction: Patient is having bowel movements now likely fecal impaction has resolved Further workup regarding possible rectal mass cannot be done as patient is not adherent to bowel prep Continue with Flagyl and Omnicef for stercoral colitis 3.Pancytopenia: Hematology has been consulted Follow up in clinic, ok to continue Eliquis 4. Hyperglycemia: Incidental finding was treated appropriately Patient is encouraged to have more p.o. intake 5. History of AFib: Continue with metoprolol, Eliquis Supplement potassium 6. DVT prophylaxis: On Eliquis 7. Code status: Full 8. Disposition: Pending placement Time Spent With Patient Time with patient: 25 - 35 minutes Subjective Date/time seen: 02/24/24 12:42 Interval history: Patient with no complaints, no acute events. Hematology saw patient and OK to keep on Eliquis. CBC stable with pancytopenia. Abdominal ultrasound with distended gallbladder but no tenderness or abdominal pain. Potassium and Magnesium replaced by IV as patient refusing oral replacement for past few days. Patient wears oxygen 3 LPM overnight. Patient stable to proceed with authorization for SNF placement pending PT/OT eval and insurance approval. Review of Systems Review of Systems: All systems reviewed & are unremarkable except as noted in HPI and below Exam Narrative: General: In no acute distress, well nourished Cardiac: Normal S1 and S2. No murmur, gallops or friction rubs, peripheral pulses intact. Respiratory: Lungs clear to auscultation, no adventitious lung sounds, currently on room air Gastrointestinal: soft, non-distended, non-tender, normoactive bowel sounds. : voiding without difficulty. Neuro: Alert and oriented x3 Psych: Tim, anxious,suspicious demeanor Objective Data Vital Signs Vital Signs: Vital Signs - 24 hr 02/23/24 14:00 02/23/24 16:00 02/23/24 20:26 Temperature 36.2 C L Pulse Rate 74 74 69 Respiratory Rate 18 Blood Pressure 118/61 Pulse Oximetry 97 100 Oxygen Delivery Nasal Cannula Oxygen Flow Rate 3 02/23/24 21:33 02/23/24 20:00 02/23/24 20:00 Temperature 36.4 C L Pulse Rate 73 71 Respiratory Rate 18 Blood Pressure 106/61 Pulse Oximetry 100 94 Oxygen Delivery Nasal Cannula Oxygen Flow Rate 2 02/24/24 00:00 02/24/24 04:00 02/24/24 06:00 Temperature 36.7 C Pulse Rate 73 77 72 Respiratory Rate 18 Blood Pressure 114/78 Pulse Oximetry 100 Oxygen Delivery Oxygen Flow Rate 02/24/24 08:35 02/24/24 10:46 02/24/24 08:00 Temperature Pulse Rate 79 Respiratory Rate Blood Pressure Pulse Oximetry 95 Oxygen Delivery Room Air Room Air Oxygen Flow Rate 02/24/24 08:00 Temperature Pulse Rate 70 Respiratory Rate Blood Pressure Pulse Oximetry Oxygen Delivery Oxygen Flow Rate Intake/Output Intake/Output: Intake & Output 02/21/24 02/22/24 02/23/24 02/24/24 23:59 23:59 23:59 23:59 Intake Total 2590 2587.5 240 240 Output Total 6 Balance 2584 2587.5 240 240 Meds/Results Medications: Active Medications Generic Name Dose Route Start Last Admin Trade Name Freq PRN Reason Stop Dose Admin Acetaminophen 650 mg 02/19/24 21:10 Acetaminophen 325 Mg Tablet PO Q4H PRN Mild Pain (1-3) or Fever Allopurinol 100 mg 02/21/24 09:00 02/24/24 10:46 Allopurinol 100 Mg Tablet PO 100 mg DAILY DAIANA Administration Apixaban 5 mg 02/22/24 17:00 02/24/24 10:46 Apixaban 5 Mg Tablet PO 5 mg BID DAIANA Administration Atorvastatin Calcium 20 mg 02/20/24 18:00 02/23/24 18:43 Atorvastatin 20 Mg Tablet PO 20 mg QPM DAIANA Administration Cefdinir 300 mg 02/22/24 21:00 02/24/24 10:46 Cefdinir 300 Mg Capsule PO 300 mg Q12HR DAIANA Administration Dextrose 12.5 gm 02/20/24 06:39 02/23/24 07:56 Dextrose 50% 25 Gm/50 Ml Syringe IV PUSH 12.5 gm PRN PRN Administration Hypoglycemia Protocol Ergocalciferol 50,000 units 02/26/24 09:00 Ergocalciferol 50,000 Units Capsule PO WEEKLY DAIANA Ferrous Sulfate 325 mg 02/22/24 17:00 02/24/24 10:46 Ferrous Sulfate [address] BY MOUTH 325 mg BID DAIANA Administration Glucagon 1 mg 02/20/24 06:39 Glucagon For Inj 1 Mg Vial IM PRN PRN Hypoglycemia Protocol Glucose 15 gm 02/20/24 06:39 Glucose Oral Gel 15 Gm Of Glucse In 37.5 Gm Tube PO PRN PRN Hypoglycemia Protocol Dextrose 1,000 mls @ 100 mls/hr 02/20/24 06:39 Dextrose 5% 1,000 Ml IVPB PRN PRN Hypoglycemia Protocol Potassium Chloride 40 meq/ 520 mls @ 130 mls/hr 02/24/24 09:00 02/24/24 10:37 Sodium Chloride IVPB 02/24/24 12:59 130 mls/hr ONCE ONE Administration Metoprolol Succinate 12.5 mg 02/21/24 09:00 02/24/24 10:46 Metoprolol Succinate Ext Rel 12.5 Mg Tabcr PO 12.5 mg DAILY DAIANA Administration Metronidazole 500 mg 02/22/24 22:00 02/24/24 06:19 Metronidazole 500 Mg Tablet PO 500 mg Q8HR DAIANA Administration Mirtazapine 30 mg 02/20/24 18:00 02/23/24 18:43 Mirtazapine 30 Mg Tablet PO 30 mg QPM DAIANA Administration Pantoprazole Sodium 40 mg 02/22/24 12:25 02/24/24 10:46 Pantoprazole 40 Mg Tablet PO 40 mg QAM DAIANA Administration Polyethylene Glycol 17 gm 02/23/24 09:00 02/24/24 10:44 Polyethylene Glycol 3350 17 Gm Powd.Pack PO Not Given QAM DAIANA Fluticasone/Salmeterol 2 puff 02/20/24 10:45 02/24/24 08:34 Fluticasone/Salmeterol 115-21 Mcg Inhaler 1 Puff INHALATION Not Given Q12HRT [facility] Radiology Results: ITS Impressions Chest X-Ray 02/19/24 15:48 IMPRESSION: No acute cardiopulmonary process. Head CT 02/19/24 16:34 IMPRESSION: No acute intracranial process. Abdomen/Pelvis CTA 02/19/24 16:49 IMPRESSION: Severe fecal impaction with findings concerning for stercoral colitis. Possible rectal mass. No source for GI bleeding identified. Abdomen X-Ray 02/22/24 15:45 IMPRESSION: 1. Stool distends the rectosigmoid. Abdomen Ultrasound 02/24/24 10:05 IMPRESSION: 1. Gallbladder distention and wall thickening, which may be secondary to fasting and interstitial edema. If there is clinical concern for acute cholecystitis, consider hepatobiliary scintigraphy. 2. Small right pleural effusion. Labs Labs: Laboratory Results - last 24 hr 02/22/24 02/24/24 02/24/24 15:04 05:43 05:46 WBC 3.0 L RBC 3.08 L Hgb 9.7 L Hct 29.7 L MCV 96.4 MCH 31.5 MCHC 32.7 RDW 18.3 H Plt Count 83 L MPV 11.6 H Immature Gran % (Auto) 0.7 H Neut % (Auto) 65.9 Lymph % (Auto) 23.8 [place] % (Auto) 6.6 Eos % (Auto) 2.3 Baso % (Auto) 0.7 Lymph # (Auto) 0.72 L [place] # (Auto) 0.2 Eos # (Auto) 0.1 Baso # (Auto) 0.0 Abs Immat Gran (auto) 0.02 Absolute Neuts (auto) 2.0 Absolute Nucleated RBC 0.000 Nucleated RBC % 0.0 % Immature Plt Fraction 4.9 Haptoglobin 89 Sodium 139 Potassium 3.4 Chloride 114 H Carbon Dioxide 18 L Anion Gap 7 BUN 9 Creatinine 0.70 Estim Creat Clear Calc 55 Estimated GFR > 60 Glucose 67 Calcium 8.1 L Magnesium 1.8 Imaging Radiologist's impression: EXAMINATION: US abdomen complete DATE: 02/24/2024 10:04 INDICATION: Pancytopenia. TECHNIQUE: Multiple grayscale and Doppler ultrasound images of the abdomen were obtained. COMPARISON: CT abdomen and pelvis 02/19/2024 FINDINGS: The visualized portions of the head and body of the pancreas are normal. Abdominal aorta is normal in caliber. The inferior vena cava is normal. There is a small right pleural effusion. The liver is normal without focal lesion. There is normal flow in main portal vein. The gallbladder is distended. Gallbladder wall thickening is noted. No visible gallstones. The common duct is normal and measures 6 mm. The kidneys are normal in size. There is cortical thinning of the kidneys. The spleen is normal in size. IMPRESSION: 1. Gallbladder distention and wall thickening, which may be secondary to fasting and interstitial edema. If there is clinical concern for acute cholecystitis, consider hepatobiliary scintigraphy. 2. Small right pleural effusion. Reviewed, dictated and finalized at location A. RIGGER Pulse Oximetry SpO2 results: 95% on room air Interpretation: No need for supplemental oxygenation at this time Quality VTE Prophylaxis VTE prophylaxis: mechanical ordered and pharmacologic ordered (Rachell) Hospitalist [facility] Advance Care Plan I have confirmed that the patient's Advanced Care Plan is present, code status is documented, or surrogate decision maker is listed in patient medical record.: Yes Medication Reconciliation I have utilized all available resources to obtain, update and review the patients current medications (includes all prescriptions, OTC, herbals, cannabis, and nutritional supplements).: Yes
[2024-02-24] MEDS: MIRTAZAPINE 30 MG TABLET PO (17:36)
[2024-02-24] MEDS: ATORVASTATIN 20 MG TABLET PO (17:36)
[2024-02-25] VITALS (8 sets, daily range): BP systolic 91–120; BP diastolic 56–69; PULSE 71–90; RESP 12–18; TEMP 36.1–36.4; O2SAT 95–100
[2024-02-25 06:14] LABS: Basophils Percent Auto 0.9 % (0.2-1.2); Eosinophils Absolute Auto 0.1 K/mm3 (0-0.3); Eosinophils Percent Auto 2.1 % (0-4.4); Hematocrit 30.6 % (37.0-47.0); Hemoglobin 9.7 g/dL (12.0-15.0); Immature Granulocyte Absolute 0.04 K/mm3 (0.00-0.031); Immature Granulocyte Percent A 1.2 % (0-0.5); Lymphocytes Absolute Auto 0.86 K/mm3 (0.9-3.2); Lymphocytes Percent Auto 25.7 % (18.3-44.2); Mean Corpuscular HGB Conc 31.7 g/dl (32-36); Mean Corpuscular Hemoglobin 31.3 pg (26-34); Mean Corpuscular Volume 98.7 fl (80-100); Mean Platelet Volume 12.7 fl (7.4-10.4); Monocytes Absolute Auto 0.2 K/mm3 (0.1-0.6); Monocytes Percent Auto 5.7 % (2.6-8.5); Neutrophils Absolute Auto 2.2 K/mm3 (1.3-6.7); Neutrophils Percent Auto 64.4 % (45.5-73.1); Platelet Count Result 87 k/mm3 (150-375); Red Cell Distribution Width 18.4 % (11.5-14.5); White Blood Count 3.4 K/mm3 (4.5-10.0)
[2024-02-25 06:28] LABS: Alanine Aminotransferase 7 U/L (6-35); Albumin Level 2.3 g/dL (3.5-5.1); Alkaline Phosphatase 62 U/L (38-126); Anion Gap 0 mmol/L (4-12); Aspartate Amino Transferase 18 U/L (14-36); Bilirubin,Total 0.5 mg/dL (0.2-1.3); Blood Urea Nitrogen 9 mg/dL (7-17); Calcium 7.9 mg/dL (8.4-10.2); Carbon Dioxide 20 mmol/L (22-30); Chloride 116 mmol/L (98-107); Estimated CRCL calculation 49 ml/min; Estimated Glomerular Filt Rate > 60; Glucose 90 mg/dL (65-110); Potassium 3.9 mmol/L (3.4-5.0); Sodium 136 mmol/L (137-145)
[2024-02-25] MEDS: metroNIDAZOLE 500 MG TABLET PO ×3 (06:28→20:43)
[2024-02-25 06:53] LABS: Platelet Estimate Decreased (Adequate)
[2024-02-25 06:54] LABS: Anisocytosis 1+; Burr Cells 1+; Ovalocytes 1+; Schistocytes None Seen
[2024-02-25] MEDS: FERROUS SULFATE 325 MG TABLET DR BY MOUTH ×2 (09:56→17:37)
[2024-02-25] MEDS: PANTOPRAZOLE 40 MG TABLET PO (09:56)
[2024-02-25] MEDS: APIXABAN 5 MG TABLET PO ×2 (09:56→17:37)
[2024-02-25] MEDS: CEFDINIR 300 MG CAPSULE PO ×2 (09:56→20:41)
[2024-02-25] MEDS: allopurinoL 100 MG TABLET PO (09:56)
[2024-02-25] MEDS: METOPROLOL SUCCINATE EXT REL 12.5 MG TABCR PO (09:58)
--- NOTE | 2024-02-25 12:36 | P.PNIM_ITS ---
Progress Note: A&P Assessment and Plan (1) Melena: Code(s): K92.1 - Melena Status: Acute Assessment and Plan: * Reporting dark stools on Eliquis for AFib * Hemoglobin stable * Continue to trend * Transfuse as needed for hemoglobin less than 7.0 * Hemoglobin stable at 9.7 * EGD was essentially normal * Unable to do colonoscopy due to patient non adherence to bowel prep, will need rectal mass worked up on outpatient basis * PT and OT evaluating * Case coordination following for discharge rehab needs. (2) Rectal mass: Code(s): K62.89 - Other specified diseases of anus and rectum Status: Acute Assessment and Plan: * GI signed off * Consult placed to Heme/Onc and suggesting outpatient workup of bonemarrow aspiration and biopsy * CT of abdomen and pelvis showing severe fecal impaction with findings concerning for sterile coral colitis, possible rectal mass. * EGD today was essentially normal * Unable to do colonoscopy due to patient non adherence to bowel prep (3) Anemia, normocytic normochromic: Code(s): D64.9 - Anemia, unspecified Status: Acute Assessment and Plan: * GI consulted * Hgb 9.7 today * Continue to trend * Transfuse for Hgb < 7.0 * Received 1 unit of blood initially when presenting with GI bleeding (4) Hyperlipidemia: Code(s): E78.5 - Hyperlipidemia, unspecified Status: Acute Assessment and Plan: * continue Atorvastatin (5) Stercoral colitis: Code(s): K52.89 - Other specified noninfective gastroenteritis and colitis Status: Acute Assessment and Plan: * Continue Flagyl and Cefdinir for colitis (6) Pancytopenia: Code(s): D61.818 - Other pancytopenia Status: Acute Assessment and Plan: * White blood cell count 3.4, RBC 3.10, platelet count 87 * continue to trend * likely secondary to stercoral colitis, rectal mass??? * Hematology/oncology consulted for pancytopenia and recommending outpatient bone marrow aspirate with biopsy * Will check anemia panel Time Spent With Patient Time with patient: 25 - 35 minutes Subjective Date/time seen: 02/25/24 12:36 Interval history: Interval history: This is a 73 year old female who presented to the hospital yesterday with melena stools, abdominal pain, fatigue, and weight loss. Work up in the hospital included a chest x-ray that was negative for any acute findings. Head CT was also negative for any acute findings. Abdomen/Pelvis CTA revealed severe fecal impaction with findings concerning for stercoral colitis, possible rectal mass. the rectum was noted to be dilated to 10.7cm with surrounding wall thickening and inflammatory changes. Initial Labs shown a normal WBC of 4.6, Hgb 11.1, INR 2.1, creatinine 1.50, eGFR 34, lactic acid normal at 1.2, proBNP 1560, negative troponin, Lipase low at 19, TSH normal at 4.380. UA was obtained and shown a urine specific gravity of 1.037, trace ketones, otherwise unremarkable. EKG showing atrial paced rhythm with a rate of 78, QTc 531. Patient was given IVF, Protonix, Rocephin, Flagyl, Miralax and Dulcolax while in the ER. GI was consulted. Subjective: No new complaints today. Labs reviewed. Exam Narrative: General: In no acute distress, well nourished Cardiac: Normal S1 and S2. No murmur, gallops or friction rubs, peripheral puls es intact. Respiratory: Lungs clear to auscultation, no adventitious lung sounds, currently on room air Gastrointestinal: soft, non-distended, non-tender, normoactive bowel sounds. : voiding without difficulty. Neuro: Alert and oriented x3 Psych: Rambling speech, anxious,suspicious demeanor Objective Data Vital Signs Vital Signs: Vital Signs - 24 hr 02/24/24 14:00 02/24/24 16:00 02/24/24 19:55 Temperature 98.2 F 97.9 F Pulse Rate 84 79 71 Respiratory Rate 19 12 Blood Pressure 118/80 75/50 L Pulse Oximetry 96 98 Oxygen Delivery Oxygen Flow Rate 02/24/24 20:00 02/25/24 05:46 02/25/24 09:58 Temperature 96.9 F L Pulse Rate 71 90 Respiratory Rate 12 Blood Pressure 120/69 Pulse Oximetry 100 100 Oxygen Delivery Nasal Cannula Oxygen Flow Rate 2 02/25/24 09:55 02/25/24 09:56 02/25/24 10:09 Temperature Pulse Rate Respiratory Rate Blood Pressure 99/64 L Pulse Oximetry 96 Oxygen Delivery Room Air Room Air Oxygen Flow Rate 02/25/24 10:58 Temperature Pulse Rate Respiratory Rate Blood Pressure Pulse Oximetry Oxygen Delivery Room Air Oxygen Flow Rate Intake/Output Intake/Output: Intake & Output 02/22/24 02/23/24 02/24/24 02/25/24 23:59 23:59 23:59 23:59 Intake Total 2587.5 240 970 175 Balance 2587.5 240 970 175 Meds/Results Medications: Active Medications Generic Name Dose Route Start Last Admin Trade Name Freq PRN Reason Stop Dose Admin Acetaminophen 650 mg 02/19/24 21:10 Acetaminophen 325 Mg Tablet PO Q4H PRN Mild Pain (1-3) or Fever Allopurinol 100 mg 02/21/24 09:00 02/25/24 09:56 Allopurinol 100 Mg Tablet PO 100 mg DAILY DAIANA Administration Apixaban 5 mg 02/22/24 17:00 02/25/24 09:56 Apixaban 5 Mg Tablet PO 5 mg BID DAIANA Administration Atorvastatin Calcium 20 mg 02/20/24 18:00 02/24/24 17:36 Atorvastatin 20 Mg Tablet PO 20 mg QPM DAIANA Administration Cefdinir 300 mg 02/22/24 21:00 02/25/24 09:56 Cefdinir 300 Mg Capsule PO 300 mg Q12HR DAIANA Administration Dextrose 12.5 gm 02/20/24 06:39 02/23/24 07:56 Dextrose 50% 25 Gm/50 Ml Syringe IV PUSH 12.5 gm PRN PRN Administration Hypoglycemia Protocol Ergocalciferol 50,000 units 02/26/24 09:00 Ergocalciferol 50,000 Units Capsule PO WEEKLY DAIANA Ferrous Sulfate 325 mg 02/22/24 17:00 02/25/24 09:56 Ferrous Sulfate [address] BY MOUTH 325 mg BID DAIANA Administration Glucagon 1 mg 02/20/24 06:39 Glucagon For Inj 1 Mg Vial IM PRN PRN Hypoglycemia Protocol Glucose 15 gm 02/20/24 06:39 Glucose Oral Gel 15 Gm Of Glucse In 37.5 Gm Tube PO PRN PRN Hypoglycemia Protocol Dextrose 1,000 mls @ 100 mls/hr 02/20/24 06:39 Dextrose 5% 1,000 Ml IVPB PRN PRN Hypoglycemia Protocol Metoprolol Succinate 12.5 mg 02/21/24 09:00 02/25/24 09:58 Metoprolol Succinate Ext Rel 12.5 Mg Tabcr PO 12.5 mg DAILY DAIANA Administration Metronidazole 500 mg 02/22/24 22:00 02/25/24 06:28 Metronidazole 500 Mg Tablet PO 500 mg Q8HR DAIANA Administration Mirtazapine 30 mg 02/20/24 18:00 02/24/24 17:36 Mirtazapine 30 Mg Tablet PO 30 mg QPM DAIANA Administration Pantoprazole Sodium 40 mg 02/22/24 12:25 02/25/24 09:56 Pantoprazole 40 Mg Tablet PO 40 mg QAM DAIANA Administration Polyethylene Glycol 17 gm 02/23/24 09:00 02/25/24 09:53 Polyethylene Glycol 3350 17 Gm Powd.Pack PO Not Given QAM DAIANA Fluticasone/Salmeterol 2 puff 02/20/24 10:45 02/25/24 07:53 Fluticasone/Salmeterol 115-21 Mcg Inhaler 1 Puff INHALATION Not Given Q12HRT DAIANA Radiology Results: ITS Impressions Chest X-Ray 02/19/24 15:48 IMPRESSION: No acute cardiopulmonary process. Head CT 02/19/24 16:34 IMPRESSION: No acute intracranial process. Abdomen/Pelvis CTA 02/19/24 16:49 IMPRESSION: Severe fecal impaction with findings concerning for stercoral colitis. Possible rectal mass. No source for GI bleeding identified. Abdomen X-Ray 02/22/24 15:45 IMPRESSION: 1. Stool distends the rectosigmoid. Abdomen Ultrasound 02/24/24 10:05 IMPRESSION: 1. Gallbladder distention and wall thickening, which may be secondary to fasting and interstitial edema. If there is clinical concern for acute cholecystitis, consider hepatobiliary scintigraphy. 2. Small right pleural effusion. Labs Labs: Laboratory Results - last 24 hr 02/25/24 05:33 WBC 3.4 L RBC 3.10 L Hgb 9.7 L Hct 30.6 L MCV 98.7 MCH 31.3 MCHC 31.7 L RDW 18.4 H Plt Count 87 L MPV 12.7 H Immature Gran % (Auto) 1.2 H Neut % (Auto) 64.4 Lymph % (Auto) 25.7 [place] % (Auto) 5.7 Eos % (Auto) 2.1 Baso % (Auto) 0.9 Lymph # (Auto) 0.86 L [place] # (Auto) 0.2 Eos # (Auto) 0.1 Baso # (Auto) 0.0 Abs Immat Gran (auto) 0.04 H Absolute Neuts (auto) 2.2 Absolute Nucleated RBC 0.000 Nucleated RBC % 0.0 Platelet Estimate Decreased % Immature Plt Fraction 6.0 Anisocytosis 1+ Ovalocytes 1+ [place] Cells 1+ Schistocytes None seen Sodium 136 L Potassium 3.9 Chloride 116 H Carbon Dioxide 20 L Anion Gap 0 L BUN 9 Creatinine 0.80 Estim Creat Clear Calc 49 Estimated GFR > 60 Glucose 90 Calcium 7.9 L Magnesium 2.0 Total Bilirubin 0.5 AST 18 ALT 7 Alkaline Phosphatase 62 Total Protein 4.0 L Albumin 2.3 L Quality VTE Prophylaxis VTE prophylaxis: mechanical ordered and pharmacologic ordered (Eliquis)
[2024-02-25] MEDS: MIRTAZAPINE 30 MG TABLET PO (17:37)
[2024-02-25] MEDS: ATORVASTATIN 20 MG TABLET PO (17:37)
[2024-02-26 06:00] VITALS: BP 110/61; PULSE 71; RESP 18; TEMP 36.3; O2SAT 100
[2024-02-26 06:38] LABS: Basophils Percent Auto 0.7 % (0.2-1.2); Eosinophils Absolute Auto 0.1 K/mm3 (0-0.3); Eosinophils Percent Auto 3.2 % (0-4.4); Hematocrit 28.2 % (37.0-47.0); Hemoglobin 9.3 g/dL (12.0-15.0); Immature Granulocyte Absolute 0.03 K/mm3 (0.00-0.031); Immature Granulocyte Percent A 1.1 % (0-0.5); Immature Platelet Fraction Pct 6.9 % (0.9-11.2); Lymphocytes Absolute Auto 0.89 K/mm3 (0.9-3.2); Lymphocytes Percent Auto 31.4 % (18.3-44.2); Mean Corpuscular Volume 96.9 fl (80-100); Mean Platelet Volume 12.8 fl (7.4-10.4); Monocytes Absolute Auto 0.2 K/mm3 (0.1-0.6); Monocytes Percent Auto 7.1 % (2.6-8.5); Neutrophils Absolute Auto 1.6 K/mm3 (1.3-6.7); Neutrophils Percent Auto 56.5 % (45.5-73.1); Platelet Count Result 80 k/mm3 (150-375); Red Blood Count 2.91 M/mm3 (4.2-5.4); Red Cell Distribution Width 18.9 % (11.5-14.5); White Blood Count 2.8 K/mm3 (4.5-10.0)
[2024-02-26] MEDS: metroNIDAZOLE 500 MG TABLET PO ×2 (06:40→14:55)
[2024-02-26 06:46] LABS: Alanine Aminotransferase 7 U/L (6-35); Albumin Level 2.2 g/dL (3.5-5.1); Alkaline Phosphatase 53 U/L (38-126); Anion Gap -3 mmol/L (4-12); Aspartate Amino Transferase 16 U/L (14-36); Bilirubin,Total 0.4 mg/dL (0.2-1.3); Blood Urea Nitrogen 9 mg/dL (7-17); Calcium 7.9 mg/dL (8.4-10.2); Carbon Dioxide 26 mmol/L (22-30); Chloride 113 mmol/L (98-107); Estimated CRCL calculation 44 ml/min; Estimated Glomerular Filt Rate > 60; Glucose 73 mg/dL (65-110); Magnesium 1.9 mg/dL (1.6-2.3); Potassium 4.2 mmol/L (3.4-5.0); Sodium 136 mmol/L (137-145)
[2024-02-26 07:01] LABS: Anisocytosis 1+; Macrocytosis 1+ (NORMAL); Platelet Estimate Decreased (Adequate)
[2024-02-26 07:02] LABS: Ovalocytes 1+; Schistocytes None Seen
--- NOTE | 2024-02-26 08:25 | P.DS_ITS ---
DS: Admitting Diagnosis Discharge Date 02/26/24 Admitting Diagnosis melena rectal mass anemia DS: Discharge Diagnosis Discharge Diagnosis (1) Melena: Code(s): K92.1 - Melena Status: Acute (2) Rectal mass: Code(s): K62.89 - Other specified diseases of anus and rectum Status: Acute (3) Anemia, normocytic normochromic: Code(s): D64.9 - Anemia, unspecified Status: Acute (4) Hyperlipidemia: Code(s): E78.5 - Hyperlipidemia, unspecified Status: Acute (5) Stercoral colitis: Code(s): K52.89 - Other specified noninfective gastroenteritis and colitis Status: Acute (6) Pancytopenia: Code(s): D61.818 - Other pancytopenia Status: Acute DS: Summary Hospital Course Reason for hospitalization: melena rectal mass anemia Hospital Course: This is a 73 year old female who presented to the hospital yesterday with melena stools, abdominal pain, fatigue, and weight loss. Work up in the hospital included a chest x-ray that was negative for any acute findings. Head CT was also negative for any acute findings. Abdomen/Pelvis CTA revealed severe fecal impaction with findings concerning for stercoral colitis, possible rectal mass. the rectum was noted to be dilated to 10.7cm with surrounding wall thickening and inflammatory changes. Initial Labs shown a normal WBC of 4.6, Hgb 11.1, INR 2.1, creatinine 1.50, eGFR 34, lactic acid normal at 1.2, proBNP 1560, negative troponin, Lipase low at 19, TSH normal at 4.380. UA was obtained and shown a urine specific gravity of 1.037, trace ketones, otherwise unremarkable. EKG showing atrial paced rhythm with a rate of 78, QTc 531. Patient was given IVF, Protonix, Rocephin, Flagyl, Miralax and Dulcolax while in the ER. GI was consulted. patient had an EGD on 02/22/2024 which was unremarkable. She was unable to do a colonoscopy due to intolerance to the bowel prep the night before. she was also found to be pancytopenic and Hematology was consulted. Hematology recommended a bone marrow biopsy on an outpatient basis. She will also need to follow up with GI for outpatient colonoscopy in workup of her rectal mass. While here she seen Physical therapy who recommended SNF placement. Patient is alert oriented x3, she is afebrile, her vital signs are stable. Labs reviewed this morning and were no change from previous. She is stable for discharge at this time to the SNF facility. She will also need to follow up with her primary care physician in 1 week. final diagnosis: stercoral colitis, rectal mass, pancytopenia Status at Discharge Cognitive/behavioral status at discharge: alert oriented x3 Functional status at discharge: uses cane/walker Overall status at discharge: patient is progressing back to baseline Time Spent with Patient Time attestation: Total time spent providing and/or coordinating discharge services: Time spent: Greater than 30 minutes Exam Narrative: General: In no acute distress, well nourished Cardiac: Normal S1 and S2. No murmur, gallops or friction rubs, peripheral pulses intact. Respiratory: Lungs clear to auscultation, no adventitious lung sounds, currently on room air Gastrointestinal: soft, non-distended, non-tender, normoactive bowel sounds. : voiding without difficulty. Neuro: Alert and oriented x3 Psych: Rambling speech, anxious,suspicious demeanor DS: Data Data Completed and Pending Labs on day of discharge: Labs from last 24 hours 02/26/24 05:49 WBC 2.8 L RBC 2.91 L Hgb 9.3 L Hct 28.2 L MCV 96.9 MCH 32.0 MCHC 33.0 RDW 18.9 H Plt Count 80 L MPV 12.8 H Immature Gran % (Auto) 1.1 H Neut % (Auto) 56.5 Lymph % (Auto) 31.4 [place] % (Auto) 7.1 Eos % (Auto) 3.2 Baso % (Auto) 0.7 Lymph # (Auto) 0.89 L [place] # (Auto) 0.2 Eos # (Auto) 0.1 Baso # (Auto) 0.0 Abs Immat Gran (auto) 0.03 Absolute Neuts (auto) 1.6 Absolute Nucleated RBC 0.000 Nucleated RBC % 0.0 Platelet Estimate Decreased % Immature Plt Fraction 6.9 Anisocytosis 1+ Macrocytosis 1+ Ovalocytes 1+ Schistocytes None seen Sodium 136 L Potassium 4.2 Chloride 113 H Carbon Dioxide 26 Anion Gap -3 L BUN 9 Creatinine 0.90 Estim Creat Clear Calc 44 Estimated GFR > 60 Glucose 73 Calcium 7.9 L Magnesium 1.9 Total Bilirubin 0.4 AST 16 ALT 7 Alkaline Phosphatase 53 Total Protein 4.0 L Albumin 2.2 L Discharge Plan Discharge Attending physician on discharge: Arnel Gonzalez Consulting providers: Jackson Laws; Juan Cano; Lesvia Donohue Discharging Clinician: Lesvia Donohue Anticipated Discharge Date/Time: 02/26/24 11:58 Patient Disposition: SNF Activity: as tolerated Diet: as tolerated Discharge Instructions: * You will need to follow up with GI in 2 weeks as you have a rectal mass that will need an outpatient colonoscopy. Call for appointment * Follow up with Hematology in 2 weeks for bone marrow aspirate and biopsy to check for your low platelet count. * Follow up with Primary care doctor in 1 week. * Finish all your antibiotic as directed even if you are feeling better. These medications are for your colitis. * Continue bowel regimen at home Patient Instructions: Antibiotic Form, Apixaban (By mouth), Pain Management (DC) Patient Language: Faroese Stand Alone Forms: General Discharge Information Follow-up/Referrals: Juan Cano MD [Physician] - 2 Weeks Jackson Laws MD [Physician] - 1 Week Bin Mosher MD [Physician] - 2 Weeks Discharge Medications: New cefdinir 300 mg Capsule 300 mg PO Q12HR Qty: 7 0RF metronidazole 500 mg Tablet 500 mg PO Q8HR Qty: 11 0RF polyethylene glycol 3350 [Miralax] 17 gram Powder In Packet 17 g PO QAM Qty: 30 0RF Continued atorvastatin 20 mg tablet 20 mg PO QPM allopurinol 100 mg tablet 100 mg PO DAILY mirtazapine 30 mg tablet 30 mg PO QPM ferrous sulfate 325 mg (65 mg iron) tablet 325 mg PO BID omeprazole 20 mg capsule,delayed release(DR/EC) 20 mg PO DAILY metoprolol succinate 25 mg tablet extended release 24 hr 12.5 mg PO DAILY albuterol sulfate 90 mcg/actuation HFA aerosol inhaler 1 - 2 puff INHALATION Q6H PRN (Reason: sob/wheezing) fluticasone propion-salmeterol 115-21 mcg/actuation HFA aerosol inhaler 2 puff INHALATION Q12H cholecalciferol (vitamin D3) 1,250 mcg (50,000 unit) capsule 1,250 mcg PO WEEKLY Rx Instructions: takes on Sundays Eliquis 5 mg tablet 5 mg PO BID Date of admission: 02/19/24 21:10 Primary Care Provider: PHYSICIAN,MILLER ROD MILL Admitting Provider: Thomas Menchaca Attending physician on admission: Lesvia Donohue Condition: Improved Quality VTE Prophylaxis VTE prophylaxis: mechanical ordered and pharmacologic ordered (Eliquis)
[2024-02-26 08:49] VITALS: O2SAT 95
[2024-02-26] MEDS: PANTOPRAZOLE 40 MG TABLET PO (10:03)
[2024-02-26] MEDS: allopurinoL 100 MG TABLET PO (10:03)
[2024-02-26] MEDS: FERROUS SULFATE 325 MG TABLET DR BY MOUTH (10:03)
[2024-02-26] MEDS: APIXABAN 5 MG TABLET PO (10:03)
[2024-02-26] MEDS: ERGOCALCIFEROL 50,000 UNITS CAPSULE 50000 UNITS PO (10:03)
[2024-02-26] MEDS: CEFDINIR 300 MG CAPSULE PO (10:03)
[2024-02-26 10:12] VITALS: BP 99/51
[2024-02-26 10:13] VITALS: PULSE 74
[2024-02-26] MEDS: METOPROLOL SUCCINATE EXT REL 12.5 MG TABCR PO (10:13)
--- NOTE | 2024-02-26 13:36 | PC.NURSE ---
Family notified of patient discharging
--- NOTE | 2024-02-26 13:36 | PC.NURSE ---
RN called [facility] to give report. No answer at this time and unable to leave voicemail.
[2024-02-26 13:53] VITALS: BP 102/54; PULSE 74; RESP 15; TEMP 36.6; O2SAT 95
[2024-02-27 14:08] LABS: ALT 5 U/L (6-29); Alpha-2-Macroglobulin 129 mg/dL (106-279); Apolipoprotein A1 92 mg/dL (101-198); Fibrosis Score 0.16; Fibrosis Stage F0; GGT 6 U/L (3-65); Haptoglobin 105 mg/dL (43-212); Necroinflammat Act Grade A0; Reference ID 5237865; Total Bilirubin 0.5 mg/dL (0.2-1.2)
[2024-02-28 01:28] LABS: Protein, Total 4.6 g/dL (6.1-8.1)
[2024-02-28 19:58] LABS: Albumin 2.7 g/dL (3.8-4.8); Alpha 1 Globulin 0.3 g/dL (0.2-0.3); Alpha 2 Globulin 0.5 g/dL (0.5-0.9); Beta 1 Globulin 0.3 g/dL (0.4-0.6); Gamma Globulin 0.6 g/dL (0.8-1.7)
== END 2024-02-26 15:35 | DRG 394 ==
LOC: ANHED 19:54 → ANH3MED 20:35
PROVIDERS: Internal Medicine; Internal Medicine Gastroenterology; Nurse Practitioner; Admitting Provider Internal Medicine; Emergency Provider Physician Assistant; Visit Provider Nurse Practitioner Acute Care
PROC: 0DJ08ZZ Inspection of Upper Intestinal Tract, Via Natural or Artificial Opening Endoscopic (ICD-10-PCS; CPT 43235; principal; 2024-02-22 14:30)
DX: K62.89 Other specified diseases of anus and rectum (principal); D61.818 Other pancytopenia; K92.1 Melena; K52.89 Other specified noninfective gastroenteritis and colitis; D64.9 Anemia, unspecified; E78.5 Hyperlipidemia, unspecified; I25.10 Atherosclerotic heart disease of native coronary artery without angina pectoris; K21.9 Gastro-esophageal reflux disease without esophagitis; F41.9 Anxiety disorder, unspecified; F32.A Depression, unspecified; R73.9 Hyperglycemia, unspecified; I48.91 Unspecified atrial fibrillation; Z91.198 Patient's noncompliance with other medical treatment and regimen for other reason; Z95.0 Presence of cardiac pacemaker; Z95.1 Presence of aortocoronary bypass graft; Z79.01 Long term (current) use of anticoagulants; Z87.891 Personal history of nicotine dependence; Z86.73 Personal history of transient ischemic attack (TIA), and cerebral infarction without residual deficits; Z95.2 Presence of prosthetic heart valve
CPT/HCPCS: 36415; 36430; 70450; 71045; 74018; 74174; 76700; 80048; 80053; 81003; 81596; 82550; 82607; 82728; 82746; 82948; 83010; 83540; 83550; 83605; 83615; 83690; 83735; 83880; 84155; 84165; 84443; 84484; 85014; 85018; 85025; 85046; 85055; 85610; 85730; 86850; 86900; 86901; 86923; 93005; 94640; 97161; 97165; 97530; 99285; A9270; G0378; J0696; J1836; J2003; J2371; J2470; J2704; J3475; J3480; J7030; J7040; J7050; J7120; P9016; Q9967